=== PATIENT | female | born 1930 | race Caucasian/White ===

== ENCOUNTER 2016-10-14 17:07 | Emergency (ER) | payer MEDICARE, OTHER ==
[2016-10-14] MEDS ORDERED: SODIUM CHLORIDE 0.9% 1,000 ML IV STA (17:14)
[2016-10-14 17:36] LABS: Anisocytosis Slight; Basophils % (A) 0 %; CH 33.8; CHCM 33.7; Eosinophils # (A) 0.1 k/uL (0-0.7); Eosinophils % (A) 1 %; HCT 39.3 % (34.0-46.0); HDW 3.12; HGB 12.7 gm/dL (11.4-16.0); Luc # (Auto) 0.25; Luc % (Auto) 2; Lymphocytes % (A) 19 %; MCH 32.6 pg (25.0-35.0); MCHC 32.4 g/dL (31.0-37.0); MCV 100.5 fL (80.0-100.0); Macrocytosis Slight; Mean Platelet Volume 6.7; Monocytes # (A) 0.6 k/uL (0-1.0); Monocytes % (A) 5 %; Neutrophils # (A) 7.9 k/uL (1.3-7.7); Neutrophils % (A) 73 %; RBC 3.91 m/uL (3.80-5.40); RDW 16.7 % (11.5-15.5); WBC 10.9 k/uL (3.8-10.6); WBC (Perox) 10.91
[2016-10-14 17:41] LABS: INR 0.9 (<1.1); Partial Thromboplastin Time 22.7 sec (22.0-30.0); Prothrombin Time 9.6 sec (9.0-12.0)
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
[2016-10-14 17:50] VITALS: RESP 18
[2016-10-14 17:50] LABS: ALT 21 U/L (9-52); AST 19 U/L (14-36); Alkaline Phosphatase 95 U/L (38-126); Anion Gap 11 mmol/L; Blood Urea Nitrogen 28 mg/dL (7-17); Calcium 10.2 mg/dL (8.4-10.2); Carbon Dioxide 26 mmol/L (22-30); Chloride 104 mmol/L (98-107); Creatine Kinase 42 U/L (30-135); Glucose 101 mg/dL (74-99); Magnesium 1.9 mg/dL (1.6-2.3); Non-African American GFR(MDRD) 52 (>60 ml/min/1.73 sqM); Phosphorous 3.4 mg/dL (2.5-4.5); Potassium 4.2 mmol/L (3.5-5.1); Sodium 141 mmol/L (137-145); Total Protein 7.3 g/dL (6.3-8.2)
[2016-10-14 18:01] LABS: Creatine Kinase MB 0.9 ng/mL (0.0-2.4); Troponin I <0.012 ng/mL (0.000-0.034)
[2016-10-14 18:46] LABS: Appearance,Urine Clear (Clear); Bilirubin,Urine Negative (Negative); Glucose,Urine (UA) Negative (Negative); Ketones,Urine Negative (Negative); Leukocyte Esterase,Urine Trace (Negative); Mucus,Urine Rare /hpf; Nitrite,Urine Negative (Negative); Particle Count 1026; Protein,Urine Negative (Negative); RBC,Urine 2 /hpf (0-5); Specific Gravity,Urine 1.008 (1.001-1.035); Squamous Epithelial Cell,Urine <1 /hpf (0-4); UA Billing (MACRO vs. MICRO) MICRO; Urobilinogen,Urine <2.0 mg/dL (<2.0); WBC,Urine 2 /hpf (0-5)
[2016-10-14] MEDS ORDERED: LORazepam 2 MG/ML SYRINGE IV STA (19:01)
[2016-10-14 19:14] VITALS: PULSE 64
[2016-10-14 21:10] VITALS: BP 126/59; TEMP 97.8
== END 2016-10-14 21:00 | disposition home or self-care (01) ==
LOC: EC 17:07
DX: F41.9 Anxiety disorder, unspecified (principal); I25.10 Atherosclerotic heart disease of native coronary artery without angina pectoris; E78.5 Hyperlipidemia, unspecified; I10 Essential (primary) hypertension; Z87.891 Personal history of nicotine dependence; Z79.82 Long term (current) use of aspirin; Z79.899 Other long term (current) drug therapy; Z91.013 Allergy to seafood; Z91.018 Allergy to other foods
CPT/HCPCS: 36415; 93005; 80053; 82550; 82553; 83735; 84100; 84484; 85025; 85610; 85730; 81001; 87086; 99284; 96374; 96361; J2060

== ENCOUNTER → 2017-08-28 | Outpatient (CLI) | payer MEDICARE, OTHER ==
--- NOTE | 2017-08-28 11:50 | US ---
EXAMINATION TYPE: US abdomen complete DATE OF EXAM: 08/28/2017 COMPARISON: NONE CLINICAL HISTORY: N28.1 renal cyst. Patient states doctor visualized liver/renal cysts while doing an other type of testing. EXAM MEASUREMENTS: Liver Length: 13.7 cm Gallbladder Wall: 0.2 cm CBD: 0.6 cm Spleen: 8.3 cm Right Kidney: 10.0 x 5.0 x 5.1 cm Left Kidney: 9.1 x 4.7 x 4.0 cm Pancreas: Tail obscured by overlying bowel gas, visualized portions wnl Liver: Multiple cystic areas visualized, largest left lobe measuring 1.3 x 1.1 x 1.4 cm. Hepatic ech otexture is slightly heterogenous, limiting evaluation for underlying hepatic masses. Gallbladder: wnl Evidence for sonographic Morelos's sign: No CBD: wnl Spleen: wnl Right Kidney: Multiple cystic areas visualized, largest mid pole measuring 1.1 x 1.2 x 0.9 cm, possi ble parapelvic cyst Left Kidney: Cystic areas visualized mid pole measuring 1.0 x 0.7 x 0.8 cm, possible parapelvic cyst . Echogenic foci visualized measuring 0.4 cm Upper IVC: wnl Abd Aorta: Atherosclerotic changes visualized IMPRESSION: 1. Benign-appearing renal and hepatic cysts. 2. Slightly heterogenous hepatic echotexture, most commonly relating to underlying hepatic steatosis. 3. Single nonobstructing 4 mm left renal calculus.
== END | disposition home or self-care (01) ==
LOC: RADUSWWP 09:30
PROVIDERS: ATTEND Internal Medicine
DX: N20.0 Calculus of kidney (principal); R93.2 Abnormal findings on diagnostic imaging of liver and biliary tract
CPT/HCPCS: 76700

== ENCOUNTER 2018-08-09 10:05 | Observation (INO) | payer MEDICARE, OTHER ==
[2018-08-09] MEDS ORDERED: ASPIRIN 81 MG PO STA (10:30)
[2018-08-09] MEDS ORDERED: NITROGLYCERIN OINT 1 INCH/GM PACKET TOPICAL STA (10:30)
--- NOTE | 2018-08-09 10:32 | ED ---
General Adult HPI - General Chief complaint: Chest Pain Stated complaint: Chest Discomfort Time Seen by Provider: 08/09/18 10:13 Source: patient, EMS, RN notes reviewed Mode of arrival: EMS Limitations: no limitations - History of Present Illness Initial comments: Patient is a pleasant 87-year-old female presenting to the emergency department chest discomfort. Patient does have a difficult time describing her symptoms. Onset of symptoms was yesterday. Discomfort feels somewhat like indigestion. Discomfort was moderate however now has resolved. There was some minimal associated dyspnea. No nausea. Patient felt sweaty and her hands yesterday. Patient does have a history of previous cardiac problems and does have 1 stent. Patient is unclear symptoms are similar or not. - Related Data Home Medications Medication Instructions Recorded Confirmed Atorvastatin [Lipitor] 80 mg PO HS 12/30/13 08/09/18 Ezetimibe [Zetia] 10 mg PO HS 12/30/13 08/09/18 Atenolol [Tenormin] 25 mg PO DAILY 09/16/14 08/09/18 Losartan Potassium [Cozaar] 50 mg PO DAILY 06/06/15 08/09/18 Aspirin 81 mg PO HS 06/22/15 08/09/18 Multivit-Min/FA/Lycopen/Lutein 1 tab PO HS 06/22/15 08/09/18 [Centrum Silver Tablet] Calcium Carbonate/Vitamin D3 1 tab PO HS 10/14/16 08/09/18 [Calcium 600-Vit D3 400 Caplet] Omeprazole [PriLOSEC] 20 mg PO DAILY 10/14/16 08/09/18 traMADol HCl [Ultram] 50 mg PO BID 10/14/16 08/09/18 Allergies Allergy/AdvReac Type Severity Reaction Status Date / Time mushroom AdvReac GOUT FLARE Verified 08/09/18 10:41 UP shellfish derived [Shellfish] AdvReac GOUT FLARE Verified 08/09/18 10:41 UP Review of Systems ROS Statement: Those systems with pertinent positive or pertinent negative responses have been documented in the HPI. ROS Other: All systems not noted in ROS Statement are negative. Constitutional: Denies: fever Eyes: Denies: eye pain ENT: Denies: ear pain Respiratory: Denies: cough Cardiovascular: Reports: chest pain Endocrine: Denies: fatigue Gastrointestinal: Denies: abdominal pain Genitourinary: Denies: dysuria Musculoskeletal: Denies: back pain Skin: Denies: rash Neurological: Denies: weakness Past Medical History Past Medical History: Coronary Artery Disease (CAD), Chest Pain / Angina, Hyperlipidemia, Hypertension Additional Past Medical History / Comment(s): 09/2014 dobutamine stress test with mild EKG changes and normal echo, chronic low back pain, electrolyte abnormality-low magnesium, heart murmur, bilateral mild macular degeneration, scarlet fever as a child, several ear infections as a child, History of Any Multi-Drug Resistant Organisms: None Reported Past Surgical History: Heart Catheterization, Heart Catheterization With Stent, Joint Replacement, Orthopedic Surgery Additional Past Surgical History / Comment(s): 2007 or 2008 PTCA with stent to LAD, 09/25/14 ccath tx medically, back injections with Dr. Chandra with last one 3 weeks ago, recent bilateral cataract removal with lens implants, bilateral knee replacement, 02/21 2 molar extraction due to cavity under crown and recently root canal under a crown. Past Anesthesia/Blood Transfusion Reactions: No Reported Reaction Additional Past Anesthesia/Blood Transfusion Reaction / Comment(s): Pt has never recieved blood. Date of Last Stent Placement:: 2008 Past Psychological History: Anxiety Smoking Status: Former smoker Past Alcohol Use History: Occasional Past Drug Use History: None Reported - Past Family History Mother Family Medical History: Congestive Heart Failure (CHF), Dementia Additional Family Medical History / Comment(s): Mother at 89yrs old. Father Family Medical History: Hypertension, Myocardial Infarction ([place]) Additional Family Medical History / Comment(s): Father at age 82yrs. General Exam Limitations: no limitations General appearance: alert, in no apparent distress Head exam: Present: atraumatic Eye exam: Present: normal appearance, PERRL ENT exam: Present: normal oropharynx Neck exam: Present: normal inspection Respiratory exam: Present: normal lung sounds bilaterally. Absent: chest wall tenderness Cardiovascular Exam: Present: regular rate, normal rhythm Expanded Peripheral pulses: 2+: Radial (R), Radial (L), Dorsalis Pedis (R), Dorsalis Pedis (L) GI/Abdominal exam: Present: soft. Absent: tenderness Extremities exam: Present: normal inspection. Absent: pedal edema, calf tenderness Neurological exam: Present: alert Psychiatric exam: Present: normal affect, normal mood Skin exam: Present: normal color Course Vital Signs 08/09/18 08/09/18 08/09/18 10:06 10:30 11:00 Temperature 98 F Pulse Rate 62 56 L 56 L Respiratory 18 Rate Blood Pressure 111/61 133/68 153/66 O2 Sat by Pulse 98 99 98 Oximetry 08/09/18 08/09/18 11:30 12:00 Temperature Pulse Rate 57 L 59 L Respiratory Rate Blood Pressure O2 Sat by Pulse 96 99 Oximetry EKG Findings - EKG Comments: EKG Findings:: Sinus bradycardia at 57. For screening AV block AK of 240. QRS 80. QT 44. QTC 402. Normal axis. LVH. No acute ST change. Medical Decision Making - Medical Decision Making Patient reevaluated and resting comfortably in bed. Near symptom-free at this point. Patient updated on results and plan. Case was discussed in detail with Dr. presley, covering with sound physician for Dr. Mcguire, who will admit. - Lab Data Result diagrams: 08/09/18 10:22 08/09/18 10:58 Lab Results 08/09/18 08/09/18 08/09/18 Range/Units 10:22 10:22 10:58 WBC 8.0 (3.8-10.6) k/uL RBC 3.83 (3.80-5.40) m/uL Hgb 11.8 (11.4-16.0) gm/dL Hct 36.1 (34.0-46.0) % MCV 94.2 (80.0-100.0) fL MCH 30.7 (25.0-35.0) pg MCHC 32.6 (31.0-37.0) g/dL RDW 18.2 H (11.5-15.5) % Plt Count 231 (150-450) k/uL Neutrophils % 72 % Lymphocytes % 18 % Monocytes % 5 % Eosinophils % 1 % Basophils % 1 % Neutrophils # 5.8 (1.3-7.7) k/uL Lymphocytes # 1.5 (1.0-4.8) k/uL Monocytes # 0.4 (0-1.0) k/uL Eosinophils # 0.1 (0-0.7) k/uL Basophils # 0.0 (0-0.2) k/uL Hypochromasia Slight Anisocytosis Slight PT 9.6 (9.0-12.0) sec INR 0.9 (<1.2) APTT 18.2 L (22.0-30.0) sec Sodium 141 (137-145) mmol/L Potassium 4.7 (3.5-5.1) mmol/L Chloride 106 (98-107) mmol/L Carbon Dioxide 29 (22-30) mmol/L Anion Gap 6 mmol/L BUN 28 H (7-17) mg/dL Creatinine 1.10 H (0.52-1.04) mg/dL Est GFR (CKD-EPI)AfAm 53 (>60 ml/min/1.73 sqM) Est GFR (CKD-EPI)NonAf 46 (>60 ml/min/1.73 sqM) Glucose 103 H (74-99) mg/dL Calcium 10.9 H (8.4-10.2) mg/dL Magnesium 1.9 (1.6-2.3) mg/dL Total Bilirubin 1.2 (0.2-1.3) mg/dL AST 20 (14-36) U/L ALT 26 (9-52) U/L Alkaline Phosphatase 90 (38-126) U/L Total Creatine Kinase (30-135) U/L CK-MB (CK-2) (0.0-2.4) ng/mL CK-MB (CK-2) Rel Index Troponin I (0.000-0.034) ng/mL Total Protein 7.1 (6.3-8.2) g/dL Albumin 4.0 (3.5-5.0) g/dL 08/09/18 Range/Units 10:58 WBC (3.8-10.6) k/uL RBC (3.80-5.40) m/uL Hgb (11.4-16.0) gm/dL Hct (34.0-46.0) % MCV (80.0-100.0) fL MCH (25.0-35.0) pg MCHC (31.0-37.0) g/dL RDW (11.5-15.5) % Plt Count (150-450) k/uL Neutrophils % % Lymphocytes % % Monocytes % % Eosinophils % % Basophils % % Neutrophils # (1.3-7.7) k/uL Lymphocytes # (1.0-4.8) k/uL Monocytes # (0-1.0) k/uL Eosinophils # (0-0.7) k/uL Basophils # (0-0.2) k/uL Hypochromasia Anisocytosis PT (9.0-12.0) sec INR (<1.2) APTT (22.0-30.0) sec Sodium (137-145) mmol/L Potassium (3.5-5.1) mmol/L Chloride (98-107) mmol/L Carbon Dioxide (22-30) mmol/L Anion Gap mmol/L BUN (7-17) mg/dL Creatinine (0.52-1.04) mg/dL Est GFR (CKD-EPI)AfAm (>60 ml/min/1.73 sqM) Est GFR (CKD-EPI)NonAf (>60 ml/min/1.73 sqM) Glucose (74-99) mg/dL Calcium (8.4-10.2) mg/dL Magnesium (1.6-2.3) mg/dL Total Bilirubin (0.2-1.3) mg/dL AST (14-36) U/L ALT (9-52) U/L Alkaline Phosphatase (38-126) U/L Total Creatine Kinase 35 (30-135) U/L CK-MB (CK-2) 0.5 (0.0-2.4) ng/mL CK-MB (CK-2) Rel Index 1.4 Troponin I <0.012 (0.000-0.034) ng/mL Total Protein (6.3-8.2) g/dL Albumin (3.5-5.0) g/dL - Radiology Data Radiology results: image reviewed (Chest x-ray shows no acute process) Disposition Clinical Impression: Chest pain Disposition: ADMITTED IP TO THIS HOSP Is patient prescribed a controlled substance at d/c from ED?: No Referrals: Leo Barillas MD [Primary Care Provider] - 1-2 days Decision Time: 12:46
[2018-08-09 10:46] LABS: Anisocytosis Slight; Basophils % (A) 1 %; Eosinophils # (A) 0.1 k/uL (0-0.7); Eosinophils % (A) 1 %; HCT 36.1 % (34.0-46.0); HGB 11.8 gm/dL (11.4-16.0); Hypochromasia Slight; Lymphocytes # (A) 1.5 k/uL (1.0-4.8); Lymphocytes % (A) 18 %; MCH 30.7 pg (25.0-35.0); MCHC 32.6 g/dL (31.0-37.0); MCV 94.2 fL (80.0-100.0); Mean Platelet Volume 6.9; Monocytes # (A) 0.4 k/uL (0-1.0); Monocytes % (A) 5 %; Neutrophils # (A) 5.8 k/uL (1.3-7.7); Neutrophils % (A) 72 %; Platelet Count 231 k/uL (150-450); RBC 3.83 m/uL (3.80-5.40); RDW 18.2 % (11.5-15.5)
--- NOTE | 2018-08-09 11:10 | XR ---
EXAMINATION TYPE: XR chest 2V DATE OF EXAM: 08/09/2018 COMPARISON: Chest x-ray June 22, 2015. HISTORY: Chest pain and discomfort. TECHNIQUE: Frontal and lateral views of the chest are obtained. FINDINGS: There is chronic parenchymal change without suspicious focal air space opacity, pleural ef fusion, or pneumothorax seen. The cardiac silhouette size is upper limits of normal currently with a therosclerotic thoracic aorta. The osseous structures are demineralized. Multilevel spurring in tho racic spine is present. Degenerative change bilateral glenohumeral joints is seen. IMPRESSION: Chronic changes without acute process.
[2018-08-09 11:17] LABS: INR 0.9 (<1.2); Prothrombin Time 9.6 sec (9.0-12.0)
[2018-08-09 11:18] LABS: Partial Thromboplastin Time 18.2 sec (22.0-30.0)
[2018-08-09 11:27] LABS: Potassium 4.7 mmol/L (3.5-5.1)
[2018-08-09 11:28] LABS: Calcium 10.9 mg/dL (8.4-10.2); Magnesium 1.9 mg/dL (1.6-2.3); Total Bilirubin 1.2 mg/dL (0.2-1.3); Total Protein 7.1 g/dL (6.3-8.2)
[2018-08-09 11:33] LABS: Creatine Kinase 35 U/L (30-135)
[2018-08-09 11:45] LABS: Creatine Kinase MB 0.5 ng/mL (0.0-2.4); Troponin I <0.012 ng/mL (0.000-0.034)
[2018-08-09] MEDS ORDERED: NITROGLYCERIN SL TABS 0.4 MG TAB SUBLINGUAL PRN (12:47)
[2018-08-09] MEDS ORDERED: MAG HYDROX/AL HYDROX/SIMETH 30 ML CUP PO PRN (13:40)
[2018-08-09] MEDS ORDERED: ACETAMINOPHEN TAB 325 MG TAB PO PRN (13:40)
[2018-08-09] MEDS ORDERED: NALOXONE 0.4 MG/ML 1 ML VIAL IV PRN (13:40)
--- NOTE | 2018-08-09 13:52 | P.HPIM ---
History of Present Illness H&P Date: 08/09/18 Chief Complaint: Chest discomfort 87-year-old female with PMH of CAD status post stent, hypertension, hyperlipidemia presents to the ED for chest pain. Patient reports feelings of heartburn that started yesterday, woke her up. The pain is intermittent, occurring about 20 times daily, lasting for about 5 minutes before resolves on its own. The pain had been persistent since yesterday, prompting patient to come to the ED. Patient describes the pain as a discomfort across her chest. Pain is 6 out of 10 in severity. Pain is nonradiating. There are no alleviating or aggravating factors. Pain is not aggravated with meals or movement or deep inspiration. Patient denies any headache, nausea, vomiting, fever, cough, breath, palpitations, changes in urination or bowel habits. Patient does report a decreased appetite for the past 1 day. Of note, she sees Dr. Segundo electromechanical engineer in the outpatient setting. Patient also complains of chronic bilateral shoulder pain, attribute it to severe arthritis. In the ED, CBC and coagulation panel was unremarkable. CMP showed a BUNs of 28 , creatinine 1.10. Initial troponin was less than 0.012, EKG showing sinus bradycardia with first-degree AV block. Chest x-ray was negative. Patient is admitted for chest pain, rule out acute coronary syndrome, cardiology on consult. Review of Systems All systems: negative Past Medical History Past Medical History: Coronary Artery Disease (CAD), Chest Pain / Angina, Hyperlipidemia, Hypertension Additional Past Medical History / Comment(s): 09/2014 dobutamine stress test with mild EKG changes and normal echo, chronic low back pain, electrolyte abnormality-low magnesium, heart murmur, bilateral mild macular degeneration, scarlet fever as a child, several ear infections as a child, History of Any Multi-Drug Resistant Organisms: None Reported Past Surgical History: Heart Catheterization, Heart Catheterization With Stent, Joint Replacement, Orthopedic Surgery Additional Past Surgical History / Comment(s): 2007 or 2008 PTCA with stent to LAD, 09/25/14 [facility] tx medically, back injections with Dr. Chandra with last one 3 weeks ago, recent bilateral cataract removal with lens implants, bilateral knee replacement, 02/21 2 molar extraction due to cavity under crown and recently root canal under a crown. Past Anesthesia/Blood Transfusion Reactions: No Reported Reaction Additional Past Anesthesia/Blood Transfusion Reaction / Comment(s): Pt has never recieved blood. Date of Last Stent Placement:: 2008 Past Psychological History: Anxiety Smoking Status: Former smoker Past Alcohol Use History: Occasional Past Drug Use History: None Reported - Past Family History Mother Family Medical History: Congestive Heart Failure (CHF), Dementia Additional Family Medical History / Comment(s): Mother at 89yrs old. Father Family Medical History: Hypertension, Myocardial Infarction ([place]) Additional Family Medical History / Comment(s): Father at age 82yrs. Medications and Allergies Home Medications Medication Instructions Recorded Confirmed Type Atorvastatin [Lipitor] 80 mg PO HS 12/30/13 08/09/18 History Ezetimibe [Zetia] 10 mg PO HS 12/30/13 08/09/18 History Atenolol [Tenormin] 25 mg PO DAILY 09/16/14 08/09/18 History Losartan Potassium [Cozaar] 50 mg PO DAILY 06/06/15 08/09/18 History Aspirin 81 mg PO HS 06/22/15 08/09/18 History Multivit-Min/FA/Lycopen/Lutein 1 tab PO HS 06/22/15 08/09/18 History [Centrum Silver Tablet] Calcium Carbonate/Vitamin D3 1 tab PO HS 10/14/16 08/09/18 History [Calcium 600-Vit D3 400 Caplet] Omeprazole [PriLOSEC] 20 mg PO DAILY 10/14/16 08/09/18 History traMADol HCl [Ultram] 50 mg PO BID 10/14/16 08/09/18 History Allergies Allergy/AdvReac Type Severity Reaction Status Date / Time mushroom AdvReac GOUT FLARE Verified 08/09/18 10:41 UP shellfish derived [Shellfish] AdvReac GOUT FLARE Verified 08/09/18 10:41 UP Physical Exam Vitals: Vital Signs Temp Pulse Resp BP Pulse Ox 08/09/18 13:00 60 122/63 96 08/09/18 12:30 59 L 128/70 97 08/09/18 12:00 59 L 99 08/09/18 11:30 57 L 96 08/09/18 11:00 56 L 153/66 98 08/09/18 10:30 56 L 133/68 99 08/09/18 10:06 98 F 62 18 111/61 98 Intake and Output 08/08/18 08/09/18 08/09/18 22:59 06:59 14:59 Other: Weight 90.718 kg General: [non toxic], [no distress], [appears at stated age] Derm: [warm], [dry] Head: [atraumatic], [normocephalic], [symmetric] Eyes: [EOMI], [no lid lag], [anicteric sclera] Mouth: [no lip lesion], [mucus membranes moist] Cardiovascular: [S1S2 reg], [no murmur], [positive DP pulse bilateral] Lungs: [CTA bilateral], [no rhonchi, no rales] , [no accessory muscle use] Abdominal: [soft], [ nontender to palpation], [no guarding], [no appreciable organomegaly] Ext: [no gross muscle atrophy], [1+ lower extremity edema], [no contractures] Neuro: [ CN II-XI grossly intact], [no focal neuro deficits] Psych: [Alert], [oriented], [appropriate affect] Results CBC & Chem 7: 08/09/18 10:22 08/09/18 10:58 Labs: Abnormal Lab Results - Last 24 Hours (Table) 08/09/18 08/09/18 08/09/18 Range/Units 10:22 10:22 10:58 RDW 18.2 H (11.5-15.5) % APTT 18.2 L (22.0-30.0) sec BUN 28 H (7-17) mg/dL Creatinine 1.10 H (0.52-1.04) mg/dL Glucose 103 H (74-99) mg/dL Calcium 10.9 H (8.4-10.2) mg/dL Thrombosis Risk Factor Assmnt - Choose All That Apply Any of the Below Risk Factors Present?: Yes Each Factor Represents 1 point: Obesity (BMI >25) Other Risk Factors: No Each Risk Factor Represents 3 Points: Age 75 years or older Thrombosis Risk Factor Assessment Total Risk Factor Score: 4 Thrombosis Risk Factor Assessment Level: Moderate Risk Assessment and Plan Assessment: Assessment and Plan 1. Chest pain 2. History of CAD status post stent 3. Acute kidney injury 4. GERD 5. DVT and GI prophylaxis 1. Appears like heartburn, low suspicion for ACS but with risk factors. Initial troponin less than 0.012, EKG showing sinus bradycardia with first degree AV block. Chest x-ray is negative. Plans to trend 2 troponin and EKG to rule out ACS. Will follow echocardiogram and lipid panel results. Follow cardiology consult. Telemetry monitoring. Pain management with Nitrostat, Tylenol or Alpha. 2. Continue aspirin and statin. Continue beta yolanda. Follow cardiology recommendations. 3. BUN 28, creatinine 1.10. Likely prerenal due to ROGER inhibitor use. Hold losartan. Encourage by mouth hydration. Daily BMP. 4. Maalox as needed for heartburn. Continue Protonix 40 mg by mouth daily. 5. SCD boots only. Protonix by mouth. Patient admitted for chest pain, rule out acute coronary syndrome, cardiology consult. Patient reports that she would like to name her son indicates that she can't make decisions for herself. Patient also states that she would not like chest compressions in the case that her heart was to stop. Patient is agreeable for intubation. Likely discharge tomorrow
--- NOTE | 2018-08-09 16:58 | ECHOF ---
Referral Reason:Chest pain MEASUREMENTS -------- HEIGHT: 154.9 cm WEIGHT: 90.7 kg BP: IVSd: 1.0 cm (0.6 - 1.1) LVIDd: 3.5 cm (3.9 - 5.3) LVPWd: 1.2 cm (0.6 - 1.1) IVSs: 1.2 cm LVIDs: 1.3 cm LVPWs: 2.0 cm Ao Diam: 3.6 cm (2.0 - 3.7) AV Cusp: 1.6 cm (1.5 - 2.6) LA Diam: 4.0 cm (2.7 - 3.8) MV EXCURSION: 12.524 mm (> 18.000) MV EF SLOPE: 71 mm/s (70 - 150) EPSS: 1.1 cm MV E Jesu: 0.76 m/s MV DecT: 204 ms MV A Jesu: 0.86 m/s MV E/A Ratio: 0.89 AV maxP.13 mmHg AV meanP.69 mmHg RAP: 5.00 mmHg RVSP: 26.68 mmHg FINDINGS -------- Sinus rhythm. This was a technically good study. The left ventricular size is normal. There is mild concentric left ventricular hypertrophy. Overa ll left ventricular systolic function is normal with, an EF between 55 - 60 %. The right ventricle is normal in size. The left atrium is mildly dilated. The right atrium is normal in size. Aortic valve is trileaflet and is mildly thickened. There is mild aortic valve sclerosis. Peak/me an gradient across the Aortic Valve is 22.13mmHg / 11.69mmHg. Mild mitral regurgitation is present. Trace tricuspid regurgitation present. The right ventricular systolic pressure, as measured by Dopp ler, is 26.68mmHg. Pulmonic valve appears structurally normal. The aortic root size is normal. IVC Not well visulized. The pericardium is normal. CONCLUSIONS -------- 1. Sinus rhythm. 2. This was a technically good study. 3. The left ventricular size is normal. 4. There is mild concentric left ventricular hypertrophy. 5. Overall left ventricular systolic function is normal with, an EF between 55 - 60 %. 6. The right ventricle is normal in size. 7. The left atrium is mildly dilated. 8. The right atrium is normal in size. 9. Aortic valve is trileaflet and is mildly thickened. 10. There is mild aortic valve sclerosis. 11. Peak/mean gradient across the Aortic Valve is 22.13mmHg / 11.69mmHg. 12. Mild mitral regurgitation is present. 13. Trace tricuspid regurgitation present. 14. The right ventricular systolic pressure, as measured by Doppler, is 26.68mmHg. 15. Pulmonic valve appears structurally normal. 16. The aortic root size is normal. 17. IVC Not well visulized. 18. The pericardium is normal. FLATWORK FINISHER HAND: Jade Diaz RDCS
[2018-08-09 17:24] VITALS: BMI 37.8
[2018-08-09] MEDS: NITROGLYCERIN OINT 1 INCH/GM PACKET TOPICAL SCH (19:21)
[2018-08-09] MEDS: HYDROcodone/APAP 5-325MG 1 EACH TAB PO PRN (20:00)
[2018-08-09] MEDS ORDERED: ASPIRIN 81 MG PO SCH (21:00)
[2018-08-09] MEDS ORDERED: EZETIMIBE 10 MG TAB PO SCH (21:00)
[2018-08-09] MEDS ORDERED: ATORVASTATIN 80 MG TAB PO SCH (21:00)
[2018-08-10] MEDS: NITROGLYCERIN OINT 1 INCH/GM PACKET TOPICAL SCH ×2 (01:51→06:22)
[2018-08-10] MEDS: HYDROcodone/APAP 5-325MG 1 EACH TAB PO PRN (03:25)
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
[2018-08-10] MEDS ORDERED: PANTOPRAZOLE 40 MG TABLET PO SCH (07:30)
[2018-08-10 07:53] LABS: Calcium 10.1 mg/dL (8.4-10.2); Potassium 4.7 mmol/L (3.5-5.1)
[2018-08-10 08:02] VITALS: BP 130/69; PULSE 57; RESP 16; TEMP 97.6
[2018-08-10] MEDS ORDERED: LOSARTAN 50 MG TAB PO SCH (09:00)
[2018-08-10] MEDS ORDERED: ATENOLOL 25 MG TAB PO SCH (09:00)
[2018-08-10] MEDS ORDERED: ASPIRIN 325 MG TAB PO SCH (09:00)
--- NOTE | 2018-08-10 09:32 | P.DS ---
Providers Date of admission: 08/09/18 12:47 Expected date of discharge: 08/10/18 Attending physician: Joselito Mendez MD Consults: 08/09/18 12:47 Consult Physician Urgent Consulting Provider: Jeanette Vasquez Consult Reason/Comments: cp Do you want consulting provider notified?: Yes Primary care physician: [facility] Course: 87-year-old female with PMH of CAD status post stent, hypertension, hyperlipidemia presents to the ED for chest pain. Patient reports feelings of heartburn that started yesterday, woke her up. The pain is intermittent, occurring about 20 times daily, lasting for about 5 minutes before resolves on its own. The pain had been persistent since yesterday, prompting patient to come to the ED. Patient describes the pain as a discomfort across her chest. Pain is 6 out of 10 in severity. Pain is nonradiating. There are no alleviating or aggravating factors. Pain is not aggravated with meals or movement or deep inspiration. Patient denies any headache, nausea, vomiting, fever, cough, breath, palpitations, changes in urination or bowel habits. Patient does report a decreased appetite for the past 1 day. Of note, she sees Dr. Segundo pediatric pathologist in the outpatient setting. Patient also complains of chronic bilateral shoulder pain, attribute it to severe arthritis. In the ED, CBC and coagulation panel was unremarkable. CMP showed a BUNs of 28 , creatinine 1.10. Initial troponin was less than 0.012, EKG showing sinus bradycardia with first-degree AV block. Chest x-ray was negative. Patient is admitted for chest pain, rule out acute coronary syndrome, cardiology on consult. Troponin was less than 0.0123 with EKG showing sinus bradycardia with first- degree AV block. Patient was evaluated by cardiology and cleared for discharge with close follow-up with her primary pediatric pathologist Dr. Segundo. Patient was seen and examined prior to discharge. No acute events overnight. Patient reports complete resolution of her chest pain after taking Maalox last night. She denies any chest pain, shortness of breath or palpitations. Looking for to going home. General: [non toxic], [no distress], [appears at stated age] Derm: [warm], [dry] Head: [atraumatic], [normocephalic], [symmetric] Eyes: [EOMI], [no lid lag], [anicteric sclera] Mouth: [no lip lesion], [mucus membranes moist] Cardiovascular: [S1S2 reg], [no murmur], [positive DP pulse bilateral] Lungs: [CTA bilateral], [no rhonchi, no rales] , [no accessory muscle use] Abdominal: [soft], [ nontender to palpation], [no guarding], [no appreciable organomegaly] Ext: [no gross muscle atrophy], [1+ lower extremity edema], [no contractures] Neuro: [ CN II-XI grossly intact], [no focal neuro deficits] Psych: [Alert], [oriented], [appropriate affect] Assessment and Plan 1. Chest pain 2. History of CAD status post stent 3. Acute kidney injury 4. GERD 5. DVT and GI prophylaxis 1. Appears like heartburn, low suspicion for ACS but with risk factors. Troponin less than 0.012 x 3, EKG showing sinus bradycardia with first degree AV block, ACS ruled out. Chest x-ray is negative. Echocardiogram shows EF of 55-60% with mild LVH, lipid panel is within normal limits except for an elevated HDL at 75. Cardiology consulted, cleared for discharge. Telemetry monitoring. Pain management with Nitrostat, Tylenol or [place]. 2. Continue aspirin and statin. Continue beta yolanda. Follow cardiology recommendations. 3. BUN 28-30, creatinine 1.10-within normal limits. Likely prerenal due to ROGER inhibitor use. Hold losartan. Encourage by mouth hydration. Daily BMP. 4. Maalox as needed for heartburn. Continue Protonix 40 mg by mouth daily. 5. SCD boots only. Protonix by mouth. Patient admitted for chest pain. ACS ruled out. Cleared by cardiology. DC today. Pertinent Studies: Chest x-ray, echocardiogram Patient Condition at Discharge: Stable Plan - Discharge Summary Discharge Rx Participant: No New Discharge Prescriptions: New Mag Hydrox/Al Hydrox/Simeth [Maalox] 15 ml PO Q6HR PRN #1 bottle PRN Reason: Indigestion Continue Ezetimibe [Zetia] 10 mg PO HS Atorvastatin [Lipitor] 80 mg PO HS Atenolol [Tenormin] 25 mg PO DAILY Losartan Potassium [Cozaar] 50 mg PO DAILY Multivit-Min/FA/Lycopen/Lutein [Centrum Silver Tablet] 1 tab PO HS Aspirin 81 mg PO HS traMADol HCl [Ultram] 50 mg PO BID Omeprazole [PriLOSEC] 20 mg PO DAILY Calcium Carbonate/Vitamin D3 [Calcium 600-Vit D3 400 Caplet] 1 tab PO HS Discharge Medication List Atorvastatin [Lipitor] 80 mg PO HS 12/30/13 [History] Ezetimibe [Zetia] 10 mg PO HS 12/30/13 [History] Atenolol [Tenormin] 25 mg PO DAILY 09/16/14 [History] Losartan Potassium [Cozaar] 50 mg PO DAILY 06/06/15 [History] Aspirin 81 mg PO HS 06/22/15 [History] Multivit-Min/FA/Lycopen/Lutein [Centrum Silver Tablet] 1 tab PO HS 06/22/15 [ History] Calcium Carbonate/Vitamin D3 [Calcium 600-Vit D3 400 Caplet] 1 tab PO HS [History] Omeprazole [PriLOSEC] 20 mg PO DAILY 10/14/16 [History] traMADol HCl [Ultram] 50 mg PO BID 10/14/16 [History] Mag Hydrox/Al Hydrox/Simeth [Maalox] 15 ml PO Q6HR PRN #1 bottle 08/10/18 [Rx] Follow up Appointment(s)/Referral(s): Leo Barillas MD [Primary Care Provider] - 1-2 days Clement Segundo MD [STAFF PHYSICIAN] - 1 Week Activity/Diet/Wound Care/Special Instructions: Diet: Heart healthy Please follow-up with your primary care provider within 1-2 days of discharge. Please follow-up with your pediatric pathologist Dr. Segundo within 1 week of discharge. Please take all medications as advised. Discharge Disposition: HOME SELF-CARE
== END 2018-08-10 10:36 | disposition home or self-care (01) ==
LOC: EC 10:05 → 1SOBS 12:47
PROVIDERS: ADMIT Family Medicine; ATTEND Family Medicine
DX: R07.89 Other chest pain (principal); N17.9 Acute kidney failure, unspecified; K21.9 Gastro-esophageal reflux disease without esophagitis; R61 Generalized hyperhidrosis; I25.10 Atherosclerotic heart disease of native coronary artery without angina pectoris; I10 Essential (primary) hypertension; E78.5 Hyperlipidemia, unspecified; I44.0 Atrioventricular block, first degree; R00.1 Bradycardia, unspecified; H35.30 Unspecified macular degeneration; F41.9 Anxiety disorder, unspecified; M19.90 Unspecified osteoarthritis, unspecified site; G89.29 Other chronic pain; M54.5 Low back pain; M25.511 Pain in right shoulder; M25.512 Pain in left shoulder; R77.8 Other specified abnormalities of plasma proteins; E66.9 Obesity, unspecified; Z68.37 Body mass index [BMI] 37.0-37.9, adult; Z79.82 Long term (current) use of aspirin; Z79.899 Other long term (current) drug therapy; Z91.013 Allergy to seafood; Z91.018 Allergy to other foods; Z95.5 Presence of coronary angioplasty implant and graft; Z98.42 Cataract extraction status, left eye; Z98.41 Cataract extraction status, right eye; Z96.1 Presence of intraocular lens; Z96.653 Presence of artificial knee joint, bilateral; Z86.19 Personal history of other infectious and parasitic diseases; Z87.891 Personal history of nicotine dependence; Z82.49 Family history of ischemic heart disease and other diseases of the circulatory system; Z81.8 Family history of other mental and behavioral disorders
CPT/HCPCS: 99285; 36415; 93005; 93306; 80061; 80053; 80048; 82550; 82553; 83735; 84484; 85025; 85610; 85730; 71046; G0378 ×2

== ENCOUNTER → 2018-10-21 | Outpatient (CLI) | payer MEDICARE, OTHER ==
--- NOTE | 2018-10-21 16:14 | MR ---
EXAMINATION TYPE: MR lumbar spine wo con DATE OF EXAM: 10/21/2018 COMPARISON: None HISTORY: 88-year-old female Low back pain TECHNIQUE: Multiplanar, multisequence images of the lumbar spine were acquired. FINDINGS: Large body habitus causes some generalized noise artifact. Vertebral body heights are preserved. There is grade 2 anterolisthesis at L4-L5 secondary to hypertrophic facet arthropathy. Grade 1 retrolisthesis at L2-L3. Advanced degenerative disc disease at L4-L5 with loss of disc height, vacuum, bulging disc, and assoc iated Modic type II endplate change. Moderate to advanced degenerative disc disease at L2-L3 with bulging disc and loss of disc height. Ligamentum flavum thickening mid to lower lumbar spine with hypertrophic facet arthropathy. Mild heterogeneous marrow signal without suspicious focal marrow replacement. Conus medullaris is normal. At T12-L1, no spinal canal or foraminal stenosis. At L1-L2, mild posterior disc bulge impressing on the ventral thecal sac without significant spinal c anal or foraminal stenosis. At L2-L3, there is hypertrophic facet arthropathy with grade 1 retrolisthesis, ligamentum flavum thic kening, diffuse disc bulge. Changes result in moderate spinal canal stenosis with severe right and mi [id number] left neuroforaminal stenosis. At L3-L4, ligamentum flavum thickening and facet degenerative change contribute to [id number] r ight and mild left neural foraminal stenosis. No spinal canal stenosis. At L4-L5, there is grade 2 anterolisthesis with ligamentum flavum thickening and advanced facet arthr opathy. Changes result in moderate left greater than right neuroforaminal stenosis and moderate spina l canal stenosis. At L5-S1, hypertrophic facet arthropathy and bulging disc. No significant canal or foraminal stenosis . IMPRESSION: 1. Hypertrophic facet arthropathy and ligamentum flavum thickening throughout. Changes result in grad e 2 anterolisthesis at L4-L5 and grade 1 retrolisthesis at L2-L3. 2. Multilevel degenerative disc disease, severe at L4-L5 and then at L2-L3. 3. Changes result in a moderate spinal canal stenosis at L2-L3 as well as L4-L5. 4. Severe right and [id number] left neuroforaminal stenosis at L2-L3. Moderate left greater melissa n right neuroforaminal stenoses at L4-L5.
== END | disposition home or self-care (01) ==
LOC: RADMRIMAIN 13:36
PROVIDERS: ATTEND Physical Medicine & Rehabilitation
DX: M48.061 Spinal stenosis, lumbar region without neurogenic claudication (principal); M51.16 Intervertebral disc disorders with radiculopathy, lumbar region; M43.16 Spondylolisthesis, lumbar region; M24.28 Disorder of ligament, vertebrae; M46.96 Unspecified inflammatory spondylopathy, lumbar region; E78.5 Hyperlipidemia, unspecified; I10 Essential (primary) hypertension; K21.9 Gastro-esophageal reflux disease without esophagitis; Z96.653 Presence of artificial knee joint, bilateral; Z95.5 Presence of coronary angioplasty implant and graft
CPT/HCPCS: 72148

== ENCOUNTER 2019-02-21 23:17 | Observation (INO) | payer MEDICARE, OTHER ==
[2019-02-21] MEDS ORDERED: SODIUM CHLORIDE 0.9% 1,000 ML IV STA (23:31)
[2019-02-21 23:54] LABS: Anisocytosis Slight; Basophils # (A) 0.1 k/uL (0-0.2); Basophils % (A) 1 %; Eosinophils # (A) 0.1 k/uL (0-0.7); Eosinophils % (A) 1 %; HCT 33.7 % (34.0-46.0); Hypochromasia Slight; Lymphocytes # (A) 1.8 k/uL (1.0-4.8); Lymphocytes % (A) 19 %; MCH 29.6 pg (25.0-35.0); MCHC 32.8 g/dL (31.0-37.0); MCV 90.5 fL (80.0-100.0); Monocytes # (A) 0.5 k/uL (0-1.0); Monocytes % (A) 5 %; Neutrophils # (A) 6.8 k/uL (1.3-7.7); Neutrophils % (A) 71 %; Platelet Count 198 k/uL (150-450); Poikilocytosis Slight; RBC 3.72 m/uL (3.80-5.40); RDW 19.3 % (11.5-15.5); WBC 9.5 k/uL (3.8-10.6)
[2019-02-22 00:04] LABS: Calcium 10.4 mg/dL (8.4-10.2); Magnesium 1.9 mg/dL (1.6-2.3); Potassium 4.2 mmol/L (3.5-5.1); Total Bilirubin 1.1 mg/dL (0.2-1.3); Total Protein 7.1 g/dL (6.3-8.2)
--- NOTE | 2019-02-22 00:11 | XR ---
EXAM: XR Chest, 2 Views CLINICAL HISTORY: ITS.REASON XR Reason: Chest Pain TECHNIQUE: Frontal and lateral views of the chest. COMPARISON: 08/09/2018 FINDINGS: Lungs: No consolidation or mass. Pleural space: No effusion. Heart: cardiomegaly. Mediastinum: Unremarkable. Bones/joints: No acute findings. IMPRESSION: No acute cardiopulmonary process. Cardiomegaly.
[2019-02-22 00:38] LABS: INR 0.9 (<1.2); Partial Thromboplastin Time 23.1 sec (22.0-30.0); Prothrombin Time 9.5 sec (9.0-12.0)
[2019-02-22] MEDS ORDERED: NITROGLYCERIN SL TABS 0.4 MG TAB SUBLINGUAL PRN (01:55)
--- NOTE | 2019-02-22 01:55 | ED ---
Chest Pain HPI - General Chief Complaint: Chest Pain Stated Complaint: chest pain Time Seen by Provider: 02/21/19 23:31 Source: patient, EMS Mode of arrival: EMS Limitations: no limitations - History of Present Illness Initial Comments: Patient is a pleasant 88-year-old female with a history of coronary artery disease who presents to the emergency department today for evaluation of chest pressure. Patient reports she has not felt well throughout the day, she woke this morning and had breakfast of juice and coffee. She states that she went about her normal activities did not have much appetite today, this evening she had a piece of toast and a Coke with did not have appetite for any other food. She is that this evening she was resting when she began to feel pressure in her chest, she was concerned this may be related to cardiac disease and contacted EMS. EMS found the patient had bradycardia with first-degree AV block but no acute findings on EKG. She was given aspirin and transferred to the hospital for further evaluation. Patient denies any diaphoresis lightheadedness or palpitations. Patient does have a history of bradycardia in the past. - Related Data Home Medications Medication Instructions Recorded Confirmed Atorvastatin [Lipitor] 80 mg PO HS 12/30/13 02/21/19 Ezetimibe [Zetia] 10 mg PO HS 12/30/13 02/21/19 Atenolol [Tenormin] 25 mg PO DAILY 09/16/14 02/21/19 Losartan Potassium [Cozaar] 50 mg PO DAILY 06/06/15 02/21/19 Aspirin 81 mg PO HS 06/22/15 02/21/19 Multivit-Min/FA/Lycopen/Lutein 1 tab PO DAILY 06/22/15 02/22/19 [Centrum Silver Tablet] Calcium Carbonate/Vitamin D3 1 tab PO DAILY 10/14/16 02/22/19 [Calcium 600-Vit D3 400 Caplet] Omeprazole [PriLOSEC] 20 mg PO DAILY 10/14/16 02/21/19 traMADol HCl [Ultram] 50 mg PO BID 10/14/16 02/21/19 Colchicine [Colcrys] 0.6 mg PO DAILY PRN 02/21/19 02/21/19 Allergies Allergy/AdvReac Type Severity Reaction Status Date / Time mushroom AdvReac GOUT FLARE Verified 02/22/19 02:42 UP shellfish derived [Shellfish] AdvReac GOUT FLARE Verified 02/22/19 02:42 UP Review of Systems ROS Statement: Those systems with pertinent positive or pertinent negative responses have been documented in the HPI. ROS Other: All systems not noted in ROS Statement are negative. EKG Findings - EKG Comments: EKG Findings:: EKG was obtained due to complaint of chest pain, EKG was obtained at 2330, rate is 58 rhythm is sinus bradycardia with first-degree block, there is normal axis with left ventricular hypertrophy, OK is prolonged at 2:30, cu rious 80, QTC 418 there is no acute ST elevations or depressions or evidence of acute ischemia or infarction. Past Medical History Past Medical History: Coronary Artery Disease (CAD), Chest Pain / Angina, Hyperlipidemia, Hypertension Additional Past Medical History / Comment(s): 09/2014 dobutamine stress test with mild EKG changes and normal echo, chronic low back pain, electrolyte abnormality-low magnesium, heart murmur, bilateral mild macular degeneration, scarlet fever as a child, several ear infections as a child, History of Any Multi-Drug Resistant Organisms: None Reported Past Surgical History: Heart Catheterization, Heart Catheterization With Stent, Joint Replacement, Orthopedic Surgery Additional Past Surgical History / Comment(s): 2007 or 2008 PTCA with stent to LAD, 09/25/14 [facility] tx medically, back injections with Dr. Chandra with last o ne 3 weeks ago, recent bilateral cataract removal with lens implants, bilateral knee replacement, 02/21 2 molar extraction due to cavity under crown and recently root canal under a crown. carpal tunnel surgery, sebacious cyst removed from back 2019 Past Anesthesia/Blood Transfusion Reactions: No Reported Reaction Additional Past Anesthesia/Blood Transfusion Reaction / Comment(s): Pt has never recieved blood. Date of Last Stent Placement:: 2008 Past Psychological History: Anxiety Smoking Status: Former smoker Past Alcohol Use History: Occasional Past Drug Use History: None Reported - Past Family History Mother Family Medical History: Congestive Heart Failure (CHF), Dementia Additional Family Medical History / Comment(s): Mother at 89yrs old. Father Family Medical History: Hypertension, Myocardial Infarction ([place]) Additional Family Medical History / Comment(s): Father at age 82yrs. General Exam - General Exam Comments Initial Comments: Physical Exam GENERAL: Patient is well-developed and well-nourished. Patient is nontoxic and well- hydrated and is in no distress. HENT: Normocephalic, Atraumatic. EYES: PERRL, EOMI PULMONARY: Unlabored respirations. No audible rales rhonchi or wheezing was noted. CARDIOVASCULAR: There is a regular rate and rhythm without any murmurs gallops or rubs. Warm and well perfused extremities ABDOMEN: Soft and nontender with normal bowel sounds. SKIN: Skin is clear with no lesions or rashes and otherwise unremarkable. : Deferred NEUROLOGIC: Patient is alert and oriented x3. Moving all extremities spontaneously MUSCULOSKELETAL: Normal extremities with adequate strength and full range of motion. No lower extremity swelling or edema. No calf tenderness. PSYCHIATRIC: Normal psychiatric evaluation. Limitations: no limitations Course Vital Signs 02/21/19 02/22/19 02/22/19 23:20 00:00 01:00 Temperature 98.8 F Pulse Rate 57 L 59 L Respiratory 18 18 Rate Blood Pressure 150/62 124/48 133/52 O2 Sat by Pulse 100 98 Oximetry 02/22/19 01:52 Temperature Pulse Rate 60 Respiratory 18 Rate Blood Pressure 143/56 O2 Sat by Pulse 99 Oximetry Chest Pain [facility] Patient was seen and evaluated, history is obtained from patient and EMS 88-year-old female known coronary artery disease presenting with pressure-like chest pain began without provocation. Patient has had aspirin prior to arrival upon arrival to the emergency department she is asymptomatic. Nitro will be held. Labs and imaging ordered. Labs reveal some mild elevated BUN consistent with dehydration no other significant abnormalities. When the patient's advanced age and medical history do feel she wore from further observation in the hospital, repeat troponins and evaluation by cardiology. Patient is agreeable. Patient primary care physician Dr. Barillas admits to [facility]. Patient care was discussed with Dr. Pastor who accepts admission. Disposition Clinical Impression: Chest pain Disposition: ADMITTED IP TO THIS HOSP Condition: Stable Is patient prescribed a controlled substance at d/c from ED?: No
--- NOTE | 2019-02-22 04:03 | P.HPIM ---
History of Present Illness H&P Date: 02/22/19 The patient is an 88 yo F with a PMH of CAD (s/p 1 stent in 2008), HTN, and HLD present to the ED w/ complaints of epigastric discomfort. The patient notes that she suddenly developed a vague pressure/burning like discomfort of the epigastric region, constant, with 1 episode of associated nausea and vomiting earlier today. She describes the pain as a band-like sensation across the chest, 4/10, non-exertional, non-radiating, non-pleuritic, w/ no alleviating or exacerbating features. The patient notes that she previously had similar vague discomfort when she had her stent placed. The patient denied cough, fever, chills, diarrhea, palpitations, SOB, dizziness, or diaphoresis. The patient notes that she has been following w/ Dr Segundo for her CAD. The patient underwent an extensive evaluation in the ED w/ WBC count 9.5, Hgb 11, platelets 198, Na 138, K 4.2, BUN 28, Cr 0.9, Troponin < 0.012, and BNP 140. EKG revealed sinus bradycardia @ 58 bpm w/ 1st degree AV block along with LVH. CXR revealed cardiomegaly but otherwise unremarkable. She is being admitted to the medicine service to r/o ACS. Review of Systems Pertinent positives and negatives as discussed in HPI, a complete review of systems was performed and all other systems are negative. Past Medical History Past Medical History: Coronary Artery Disease (CAD), Chest Pain / Angina, Hyperlipidemia, Hypertension Additional Past Medical History / Comment(s): 09/2014 dobutamine stress test with mild EKG changes and normal echo, chronic low back pain, electrolyte abnormality-low magnesium, heart murmur, bilateral mild macular degeneration, scarlet fever as a child, several ear infections as a child, History of Any Multi-Drug Resistant Organisms: None Reported Past Surgical History: Heart Catheterization, Heart Catheterization With Stent, Joint Replacement, Orthopedic Surgery Additional Past Surgical History / Comment(s): 2007 or 2008 PTCA with stent to LAD, 09/25/14 [facility] [place] [facility] tx medically, back injections with Dr. Chandra with last one 3 weeks ago, recent bilateral cataract removal with lens implants, bilateral knee replacement, 02/21 2 molar extraction due to cavity under crown and recently root canal under a crown. carpal tunnel surgery, sebacious cyst removed from back 2019 Past Anesthesia/Blood Transfusion Reactions: No Reported Reaction Additional Past Anesthesia/Blood Transfusion Reaction / Comment(s): Pt has never recieved blood. Date of Last Stent Placement:: 2008 Past Psychological History: Anxiety Smoking Status: Former smoker Past Alcohol Use History: Occasional Past Drug Use History: None Reported - Past Family History Mother Family Medical History: Congestive Heart Failure (CHF), Dementia Additional Family Medical History / Comment(s): Mother at 89yrs old. Father Family Medical History: Hypertension, Myocardial Infarction ([place]) Additional Family Medical History / Comment(s): Father at age 82yrs. Medications and Allergies Home Medications Medication Instructions Recorded Confirmed Type Atorvastatin [Lipitor] 80 mg PO HS 12/30/13 02/21/19 History Ezetimibe [Zetia] 10 mg PO HS 12/30/13 02/21/19 History Atenolol [Tenormin] 25 mg PO DAILY 09/16/14 02/21/19 History Losartan Potassium [Cozaar] 50 mg PO DAILY 06/06/15 02/21/19 History Aspirin 81 mg PO HS 06/22/15 02/21/19 History Multivit-Min/FA/Lycopen/Lutein 1 tab PO DAILY 06/22/15 02/22/19 History [Centrum Silver Tablet] Calcium Carbonate/Vitamin D3 1 tab PO DAILY 10/14/16 02/22/19 History [Calcium 600-Vit D3 400 Caplet] Omeprazole [PriLOSEC] 20 mg PO DAILY 10/14/16 02/21/19 History traMADol HCl [Ultram] 50 mg PO BID 10/14/16 02/21/19 History Colchicine [Colcrys] 0.6 mg PO DAILY PRN 02/21/19 02/21/19 History Allergies Allergy/AdvReac Type Severity Reaction Status Date / Time mushroom AdvReac GOUT FLARE Verified 02/22/19 02:42 UP shellfish derived [Shellfish] AdvReac GOUT FLARE Verified 02/22/19 02:42 UP Physical Exam Vitals: Vital Signs Temp Pulse Pulse Resp BP BP Pulse Ox 02/22/19 03:03 18 02/22/19 02:49 97.4 F L 57 L 18 139/85 98 02/22/19 01:52 60 18 143/56 99 02/22/19 01:00 133/52 02/22/19 00:00 59 L 18 124/48 98 02/21/19 23:20 98.8 F 57 L 18 150/62 100 Intake and Output 02/21/19 02/21/19 02/22/19 14:59 22:59 06:59 Other: # Voids 1 Weight 92.986 kg General: non toxic, no distress, appears at stated age, obese Derm: no unusual rashes/lesions no unusual ecchymoses, warm, dry Head: atraumatic, normocephalic, symmetric Eyes: EOMI, no lid lag, anicteric sclera, pupils equal round reactive to light ENT: Nose and ears atraumatic, no thrush, no pharyngeal erythema Neck: No thyromegaly, no cervical lymphadenopathy, trachea midline, supple Mouth: no lip lesion, mucus membranes moist Cardiovascular: S1S2 reg, no murmur, positive posterior tibial pulse bilateral, no edema, capillary refill less than 2 seconds, no epigastric discomfort Lungs: CTA bilateral, no rhonchi, no rales , no accessory muscle use Abdominal: soft, nontender to palpation, no guarding, no appreciable organomegaly, normal bowel sounds Ext: no gross muscle atrophy, muscle strength 5 out of 5 in all 4 extremities grossly, no contractures, Neuro: CN II-XI grossly intact, light touch intact all 4 extremities, finger to nose within normal limits, Psych: Alert, oriented, appropriate affect Results CBC & Chem 7: 02/21/19 23:45 02/21/19 23:45 Labs: Abnormal Lab Results - Last 24 Hours (Table) 02/21/19 02/21/19 Range/Units 23:45 23:45 RBC 3.72 L (3.80-5.40) m/uL Hgb 11.0 L (11.4-16.0) gm/dL Hct 33.7 L (34.0-46.0) % RDW 19.3 H (11.5-15.5) % BUN 28 H (7-17) mg/dL Calcium 10.4 H (8.4-10.2) mg/dL Thrombosis Risk Factor Assmnt - Choose All That Apply Each Risk Factor Represents 3 Points: Age 75 years or older Thrombosis Risk Factor Assessment Total Risk Factor Score: 3 Thrombosis Risk Factor Assessment Level: Moderate Risk Assessment and Plan Plan: Chest discomfort, r/o ASC -Cardiology monitoring -Trend troponin and EKG -Cardiology consult -Continue with aspirin, Lipitor Chronic conditions: Hypertension, hyperlipidemia -Continue with home meds DVT prophylaxis -Heparin The patient is admitted with an anticipated less than 2 midnight stay for evaluation of r/o ACS CODE STATUS: Full Code Discussed with: Patient Anticipated discharge date: 02/22/[address]: Home A total of 35 minutes was spent on the care of this complex patient more than 50% of the time was spent in counseling and care coordination.
[2019-02-22] MEDS: PANTOPRAZOLE 40 MG TABLET PO SCH (08:04)
[2019-02-22] MEDS ORDERED: ATENOLOL 50 MG TAB PO SCH (09:00)
[2019-02-22] MEDS ORDERED: LYCOPEN PO SCH (09:00)
[2019-02-22] MEDS ORDERED: LUTEIN PO SCH (09:00)
[2019-02-22] MEDS ORDERED: [UNRECOGNIZED DRUG - OTHER] PO SCH (09:00)
[2019-02-22] MEDS ORDERED: MULTIVIT MIN PO SCH (09:00)
[2019-02-22] MEDS: CALCIUM CARB-VIT D 500MG-200UN 1 EACH TAB PO SCH (10:02)
[2019-02-22] MEDS: HEPARIN SODIUM,PORCINE 5,000 UNIT/ML 1 ML VIAL SQ SCH ×3 (10:02→23:26)
[2019-02-22] MEDS: NITROGLYCERIN OINT 1 INCH/GM PACKET TOPICAL SCH ×3 (10:02→23:34)
[2019-02-22] MEDS: LOSARTAN 50 MG TAB PO SCH (10:02)
--- NOTE | 2019-02-22 14:56 | CONS ---
CONSULTATION CHIEF COMPLAINT: Chest pain. Delmi is an 88-year-old lady with history of coronary artery disease, status post angioplasty of LAD, who is admitted to the hospital with chest pain. She describes it as a sensation of indigestion in the precordial area, mild intensity, came on at rest without any clear-cut relieving or exacerbating factors. At the time of my evaluation this morning, she is pain free, hemodynamically stable and in no apparent distress. An echocardiogram in the past showed normal LV function with mild aortic stenosis. EKG does not reveal acute ischemic changes and cardiac enzymes have been negative. Creatinine is normal at 0.9. BNP is normal. Hemoglobin is 11. The patient had patent stent on a cardiac catheterization in 2014. PAST MEDICAL HISTORY: Significant for CAD, status post angioplasty, hypertension, dyslipidemia. MEDICATIONS: Include Cozaar 50 daily, Prilosec 20 daily, Zetia 10 daily, Lipitor 80 daily, Tenormin 25 daily and aspirin. ALLERGIES: To SHELLFISH. FAMILY HISTORY: Negative for premature coronary artery disease. SOCIAL HISTORY: Negative for smoking, EtOH abuse or drug abuse. REVIEW OF SYSTEMS: HEENT is unremarkable. CARDIAC: As described above. RESPIRATORY: As described above. GI: Negative. GENITOURINARY: Negative. ALLERGY: Negative. SKIN: Negative. MUSCULOSKELETAL: Significant for arthritis. PSYCHOSOCIAL: Negative. ENDOCRINE: Negative. DERMATOLOGICAL: Negative. CONSTITUTIONAL: Negative. ONCOLOGICAL: Negative. Rest of the system review is not relevant. EXAM: Patient is comfortable at rest. Heart rate is 69 beats per minute. Blood pressure 160/84, respiratory rate is 18. Chest exam reveals diminished air entry at the bases. Heart exam reveals first and second heart sounds. No gallop. No murmur. No rub. Abdomen is soft, nontender. Exam of extremities did not reveal any edema. Peripheral pulses are felt. LABS: Show that 2 sets of troponins are negative. Creatinine is 0.9 hemoglobin is 11. ASSESSMENT: 1. Precordial chest pain. 2. Coronary artery disease status post angioplasty. 3. Hypertension. PLAN: Patient's chest discomfort is atypical. I will schedule her for a stress test tomorrow. If this is negative, she can be discharged home. MMODL / IJN: [id number] /
[2019-02-22] MEDS ORDERED: traMADol 50 MG TAB PO PRN (15:06)
[2019-02-22] MEDS ORDERED: EZETIMIBE 10 MG TAB PO SCH (21:00)
[2019-02-22] MEDS ORDERED: ATORVASTATIN 80 MG TAB PO SCH (21:00)
[2019-02-22] MEDS ORDERED: ZOLPIDEM 5 MG TAB PO SCH (21:00)
[2019-02-23 00:07] LABS: Cholesterol 139 mg/dL (<200); HDL Cholesterol 74 mg/dL (40-60); LDL Cholesterol,Calculated 48 mg/dL (0-99); Triglycerides 84 mg/dL (<150)
[2019-02-23] MEDS: ACETAMINOPHEN TAB 325 MG TAB PO PRN ×2 (00:13→08:03)
[2019-02-23] MEDS ORDERED: DOBUTamine DRIP for NUC MED 500 MG in DEXTROSE/WATER 1 250ML.BAG IV ONE (08:00)
[2019-02-23] MEDS: PANTOPRAZOLE 40 MG TABLET PO SCH (08:03)
[2019-02-23] MEDS: NITROGLYCERIN OINT 1 INCH/GM PACKET TOPICAL SCH (08:04)
[2019-02-23] MEDS: HEPARIN SODIUM,PORCINE 5,000 UNIT/ML 1 ML VIAL SQ SCH (08:04)
[2019-02-23] MEDS: LOSARTAN 50 MG TAB PO SCH (08:04)
[2019-02-23] MEDS: CALCIUM CARB-VIT D 500MG-200UN 1 EACH TAB PO SCH (08:04)
--- NOTE | 2019-02-23 08:16 | PN ---
PROGRESS NOTE Mrs. Chan is an 88-year-old female with known history of coronary artery disease who presented with symptoms of chest discomfort. She has been under increased amount of stress recently. Her symptoms have resolved at this time. She is only complaining of headache. She denies any dizziness or palpitation. She denies any nausea. She continued to be on aspirin once a day, nitro paste, Lipitor 80 mg daily, Zetia 10 mg daily, losartan 50 mg daily. PHYSICAL EXAMINATION: Blood pressure running in the 120s to 150s with the heart rate in the 60s. LUNGS: Clear. HEART: Regular rate and rhythm/ S1, S2. No S3 with systolic murmur. No diastolic murmur. No rub. ABDOMEN: Soft. Nontender. EXTREMITIES: No edema. LAB DATA: Lab data revealed a troponin less than 0.012. Cholesterol 139, LDL of 48. IMPRESSION: 1. Chest discomfort, has some atypical features for ischemic heart disease probably noncardiac. 2. History of coronary artery disease. 3. Hypertension. 4. Hyperlipidemia. RECOMMENDATION: I will stop her nitro paste. We will proceed with the stress test as scheduled. If there is no evidence of inducible ischemia, then no further cardiac workup will be needed. MMODL / IJN: [id number] /
[2019-02-23] MEDS ORDERED: ASPIRIN 325 MG TAB PO SCH (09:00)
[2019-02-23] MEDS ORDERED: ASPIRIN 81 MG PO SCH (09:00)
--- NOTE | 2019-02-23 13:20 | ECHOS ---
STRESS ECHOCARDIOGRAM DATE OF SERVICE: 02/23/2019 INDICATIONS: Chest pain. MEDICATIONS: BASELINE HEART RATE: 70 BASELINE BLOOD PRESSURE: 152/62 MAXIMUM HEART RATE: 125 MAXIMUM BLOOD PRESSURE: 170/64 85% MPHR: 114 100% MPHR: 134 METS: MAXIMUM STAGE REACHED: TOTAL EXERCISE TIME: CLINICAL INFORMATION: Baseline rhythm is sinus mechanism, rate is 70, normal axis and intervals, rare PACs. Baseline blood pressure 152/62 mmHg. Patient received infusion of dobutamine per protocol reaching peak rate 125 beats per minute which is equal to 93% maximum predicted heart rate. Peak blood pressure 170/64 mmHg. Electrocardiograph monitoring revealed no evidence of diagnostic ischemic ST deviation. Baseline echocardiogram revealed normal wall thickness and motion. At peak exercise, there was normal wall motion augmentation with no hypokinesis or dyskinesis. CONCLUSION: 1. Normal electrocardiographic response to dobutamine infusion. 2. Normal stress echocardiogram with no evidence of stress induced ischemia. MMODL / IJN: [id number] /
--- NOTE | 2019-02-23 15:08 | P.DS ---
Providers Date of admission: 02/22/19 01:55 Expected date of discharge: 02/23/19 Attending physician: Matthew Pastor MD Consults: 02/22/19 01:55 Consult Physician Urgent Consulting Provider: [facility] Consult Reason/Comments: chest pain, hx CAD Do you want consulting provider notified?: Yes, Notify in am Primary care physician: [facility] Course: The patient is an 88 yo F with a PMH of CAD (s/p 1 stent in 2008), HTN, and HLD present to the ED w/ complaints of epigastric discomfort. The patient notes that she suddenly developed a vague pressure/burning like discomfort of the epigastric region, constant, with 1 episode of associated nausea and vomiting earlier today. The patient notes that she has been following w/ Dr Segundo for her CAD. The patient underwent an extensive evaluation in the ED w/ WBC count 9.5, Hgb 11, platelets 198, Na 138, K 4.2, BUN 28, Cr 0.9, Troponin < 0.012, and BNP 140. EKG revealed sinus bradycardia @ 58 bpm w/ 1st degree AV block along with LVH. CXR revealed cardiomegaly but otherwise unremarkable. She is being admitted to the medicine service to r/o ACS. Troponin was less than 0.0123 with EKG showing sinus bradycardia with first- degree AV block. Cardiology was consulted and recommended stress test. Stress test was negative and patient was cleared from a cardiology perspective. Patient was resumed on aspirin 81 mg by mouth daily along with high-dose Lipitor. Patient was seen and examined. No acute events overnight. Patient reports complete resolution of her chest pain. She denies any chest pain, shortness of breath or palpitations. No nausea or vomiting. No fever or chills. General: [non toxic], [no distress], [appears at stated age] Derm: [warm], [dry] Head: [atraumatic], [normocephalic], [symmetric] Eyes: [EOMI], [no lid lag], [anicteric sclera] Mouth: [no lip lesion], [mucus membranes moist] Cardiovascular: [S1S2 reg], [no murmur], [positive DP pulse bilateral] Lungs: [CTA bilateral], [no rhonchi, no rales] , [no accessory muscle use] Ext: [no gross muscle atrophy], [no edema], [no contractures] Neuro: [no focal neuro deficits] Psych: [Alert], [oriented], [appropriate affect] Assessment and Plan Chest pain with history of CAD Hypertension Hyperlipidemia Acute coronary syndrome has been ruled out. Stress test has been negative. Patient was cleared from discharge from cardiology perspective. Restart aspirin and Lipitor. Continue Zetia at bedtime. We will resume losartan for hypertension and Lipitor for hyperlipidemia. [Patient is to follow-up with her PCP within 1-2 days of discharge. Follow-up with cardiology within 1 week of discharge. Patient verbalized understanding of the plan.] Pertinent Studies: Chest x-ray, stress test Patient Condition at Discharge: Stable Plan - Discharge Summary New Discharge Prescriptions: Continue Ezetimibe [Zetia] 10 mg PO HS Atorvastatin [Lipitor] 80 mg PO HS Atenolol [Tenormin] 25 mg PO DAILY Losartan Potassium [Cozaar] 50 mg PO DAILY Multivit-Min/FA/Lycopen/Lutein [Centrum Silver Tablet] 1 tab PO DAILY Aspirin 81 mg PO HS traMADol HCl [Ultram] 50 mg PO BID Omeprazole [PriLOSEC] 20 mg PO DAILY Calcium Carbonate/Vitamin D3 [Calcium 600-Vit D3 400 Caplet] 1 tab PO DAILY Colchicine [Colcrys] 0.6 mg PO DAILY PRN PRN Reason: GOUT Discharge Medication List Atorvastatin [Lipitor] 80 mg PO HS 12/30/13 [History] Ezetimibe [Zetia] 10 mg PO HS 12/30/13 [History] Atenolol [Tenormin] 25 mg PO DAILY 09/16/14 [History] Losartan Potassium [Cozaar] 50 mg PO DAILY 06/06/15 [History] Aspirin 81 mg PO HS 06/22/15 [History] Multivit-Min/FA/Lycopen/Lutein [Centrum Silver Tablet] 1 tab PO DAILY 06/22/15 [History] Calcium Carbonate/Vitamin D3 [Calcium 600-Vit D3 400 Caplet] 1 tab PO DAILY 10/14/16 [History] Omeprazole [PriLOSEC] 20 mg PO DAILY 10/14/16 [History] traMADol HCl [Ultram] 50 mg PO BID 10/14/16 [History] Colchicine [Colcrys] 0.6 mg PO DAILY PRN 02/21/19 [History] Follow up Appointment(s)/Referral(s): Clement Segundo MD [STAFF PHYSICIAN] - 03/10/19 8:45 am Leo Barillas MD [Primary Care Provider] - 1-2 days Activity/Diet/Wound Care/Special Instructions: Diet: Heart healthy Follow-up PCP within 1-2 days of discharge. Follow-up with cardiology within 1 week of discharge. Take all medications as advised. Discharge Disposition: HOME SELF-CARE
[2019-02-23 16:04] VITALS: BP 144/82; PULSE 80; RESP 18; TEMP 98.4
== END 2019-02-23 16:56 | disposition home or self-care (01) ==
LOC: EC 23:17 → 1SOBS 02-22 01:55
PROVIDERS: ADMIT Internal Medicine; ATTEND Internal Medicine
DX: R10.13 Epigastric pain (principal); R07.2 Precordial pain; R00.1 Bradycardia, unspecified; R11.2 Nausea with vomiting, unspecified; R51 Headache; R94.4 Abnormal results of kidney function studies; M19.90 Unspecified osteoarthritis, unspecified site; I25.10 Atherosclerotic heart disease of native coronary artery without angina pectoris; Z95.5 Presence of coronary angioplasty implant and graft; I10 Essential (primary) hypertension; E78.5 Hyperlipidemia, unspecified; I44.0 Atrioventricular block, first degree; G89.29 Other chronic pain; M54.5 Low back pain; F41.9 Anxiety disorder, unspecified; Z87.891 Personal history of nicotine dependence; Z79.899 Other long term (current) drug therapy; Z79.82 Long term (current) use of aspirin; Z79.891 Long term (current) use of opiate analgesic; Z91.013 Allergy to seafood; Z91.018 Allergy to other foods; Z82.49 Family history of ischemic heart disease and other diseases of the circulatory system; Z81.8 Family history of other mental and behavioral disorders
CPT/HCPCS: 36415; 71046; 80053; 80061; 83735; 83880; 84484; 85025; 85610; 85730; 93005; 93351; 96360; 96361; 96372; 99285

== ENCOUNTER → 2020-10-05 | Outpatient (CLI) | payer MEDICARE, OTHER | END | disposition home or self-care (01) | LOC: LABWHC1 15:25 | PROVIDERS: ATTEND Internal Medicine | DX: R05 Cough (principal); R06.02 Shortness of breath | CPT/HCPCS: U0003; C9803 ==

== ENCOUNTER 2020-11-01 18:51 | Inpatient (IN) | payer MEDICARE, OTHER ==
[2020-11-01] MEDS ORDERED: SODIUM CHLORIDE 0.9% 500 ML 500 ML IV ONE (19:08)
--- NOTE | 2020-11-01 19:16 | ED ---
General Adult HPI - General Chief complaint: Recheck/Abnormal Lab/Rx Stated complaint: low hemoglobin Time Seen by Provider: 11/01/20 18:55 Source: patient, RN notes reviewed, old records reviewed Mode of arrival: ambulatory Limitations: no limitations - History of Present Illness Initial comments: This is an 89-year-old female presents emergency Department after having visited her ENT and they found that her hemoglobin was low. Patient states she's been weak now for a few weeks and only can sit around because she so tired. Patient states she gets up and she does get somewhat lightheaded and short of breath. Patient also states she did have some black stools a few days ago but it only happened on one day. Patient denies any fever chills or cough per patient denies any chest pain or palpitations. Patient has noted some increased swelling to her legs but there is no calf tenderness. Patient denies being on any blood thinners other than an 81 mg aspirin. Patient denies any abdominal pain patient denies nausea vomiting or diarrhea. Patient denies any history of anemia - Related Data Home Medications Medication Instructions Recorded Confirmed Atorvastatin [Lipitor] 80 mg PO DAILY 12/30/13 11/01/20 Ezetimibe [Zetia] 10 mg PO DAILY 12/30/13 11/01/20 Atenolol [Tenormin] 25 mg PO DAILY 09/16/14 11/01/20 Losartan Potassium [Cozaar] 50 mg PO DAILY 06/06/15 11/01/20 Aspirin 81 mg PO DAILY 06/22/15 11/01/20 Omeprazole [PriLOSEC] 20 mg PO DAILY 10/14/16 11/01/20 traMADol HCl [Ultram] 50 mg PO BID 10/14/16 11/01/20 Colchicine [Colcrys] 0.6 mg PO DAILY PRN 02/21/19 11/01/20 Allergies Allergy/AdvReac Type Severity Reaction Status Date / Time mushroom AdvReac GOUT FLARE Verified 11/01/20 20:02 UP shellfish derived [Shellfish] AdvReac GOUT FLARE Verified 11/01/20 20:02 UP Review of Systems ROS Statement: Those systems with pertinent positive or pertinent negative responses have been documented in the HPI. ROS Other: All systems not noted in ROS Statement are negative. Past Medical History Past Medical History: Coronary Artery Disease (CAD), Chest Pain / Angina, Hyperlipidemia, Hypertension Additional Past Medical History / Comment(s): 09/2014 dobutamine stress test with mild EKG changes and normal echo, chronic low back pain, electrolyte abnormality-low magnesium, heart murmur, bilateral mild macular degeneration, scarlet fever as a child, several ear infections as a child, History of Any Multi-Drug Resistant Organisms: None Reported Past Surgical History: Heart Catheterization, Heart Catheterization With Stent, Joint Replacement, Orthopedic Surgery Additional Past Surgical History / Comment(s): 2007 or 2008 PTCA with stent to LAD, 09/25/14 ccath tx medically, back injections with Dr. Chandra with last one 3 weeks ago, recent bilateral cataract removal with lens implants, bilateral knee replacement, 02/21 2 molar extraction due to cavity under crown and recently root canal under a crown. carpal tunnel surgery, sebacious cyst removed from back 2019 Past Anesthesia/Blood Transfusion Reactions: No Reported Reaction Additional Past Anesthesia/Blood Transfusion Reaction / Comment(s): Pt has never recieved blood. Date of Last Stent Placement:: 2008 Past Psychological History: Anxiety Smoking Status: Never smoker Past Alcohol Use History: Occasional Past Drug Use History: None Reported - Past Family History Mother Family Medical History: Congestive Heart Failure (CHF), Dementia Additional Family Medical History / Comment(s): Mother at 89yrs old. Father Family Medical History: Hypertension, Myocardial Infarction (ME) Additional Family Medical History / Comment(s): Father at age 82yrs. General Exam - General Exam Comments Initial Comments: GENERAL: Patient is well-developed and well-nourished. Patient is nontoxic and well- hydrated and is in mild distress. ENT: Neck is soft and supple. No significant lymphadenopathy is noted. Oropharynx is clear. Moist mucous membranes. Neck has full range of motion without eliciting any pain. EYES: The sclera were anicteric and conjunctiva is pale.. Extraocular movements were intact and pupils were equal round and reactive to light. Eyelids were unremarkable. PULMONARY: Unlabored respirations. Good breath sounds bilaterally. No audible rales rhonchi or wheezing was noted. CARDIOVASCULAR: There is a regular rate and rhythm without any murmurs gallops or rubs. ABDOMEN: Soft and nontender with normal bowel sounds. SKIN: Patient's skin is very pale NEUROLOGIC: Patient is alert and oriented x3. Cranial nerves II through XII are grossly intact. Motor and sensory are also intact. Normal speech, volume and content. Symmetrical smile. MUSCULOSKELETAL: Normal extremities with adequate strength and full range of motion. LYMPHATICS: No significant lymphadenopathy is noted PSYCHIATRIC: Normal psychiatric evaluation. Limitations: no limitations Course Vital Signs 11/01/20 11/01/20 11/01/20 18:53 19:18 19:42 Temperature 98 F 98.8 F Pulse Rate 80 67 Respiratory 18 24 16 Rate Blood Pressure 162/81 129/46 O2 Sat by Pulse 100 97 Oximetry 11/01/20 11/01/20 11/01/20 20:15 20:34 20:52 Temperature 98.5 F Pulse Rate 68 67 67 Respiratory 17 18 18 Rate Blood Pressure 129/39 141/49 O2 Sat by Pulse 97 98 97 Oximetry Medical Decision Making - Medical Decision Making Patient's hemoglobin is 4.9. Occult stool was negative. I ordered 2 units of packed red blood cells per the patient. I spoke with Dr. Vargas he agreed to admit the patient admitted the patient I wrote admitting orders and I consult to GI. - Lab Data Result diagrams: 11/01/20 19:35 11/01/20 19:35 Lab Results 11/01/20 11/01/20 11/01/20 Range/Units 19:35 19:35 19:35 WBC 9.9 (3.8-10.6) k/uL RBC 2.06 L (3.80-5.40) m/uL Hgb 4.9 L* (11.4-16.0) gm/dL Hct 16.5 L* (34.0-46.0) % MCV 80.2 (80.0-100.0) fL MCH 23.9 L (25.0-35.0) pg MCHC 29.8 L (31.0-37.0) g/dL RDW 19.5 H (11.5-15.5) % Plt Count 313 (150-450) k/uL MPV 7.7 Neutrophils % 69 % Lymphocytes % 19 % Monocytes % 7 % Eosinophils % 2 % Basophils % 1 % Neutrophils # 6.8 (1.3-7.7) k/uL Lymphocytes # 1.9 (1.0-4.8) k/uL Monocytes # 0.7 (0-1.0) k/uL Eosinophils # 0.2 (0-0.7) k/uL Basophils # 0.1 (0-0.2) k/uL Hypochromasia Marked Poikilocytosis Moderate Anisocytosis Slight Microcytosis Slight PT 9.8 (9.0-12.0) sec INR 0.9 (<1.2) APTT 19.7 L (22.0-30.0) sec Sodium 136 L (137-145) mmol/L Potassium 5.4 H (3.5-5.1) mmol/L Chloride 103 (98-107) mmol/L Carbon Dioxide 21 L (22-30) mmol/L Anion Gap 12 mmol/L BUN 33 H (7-17) mg/dL Creatinine 1.31 H (0.52-1.04) mg/dL Est GFR (CKD-EPI)AfAm 42 (>60 ml/min/1.73 sqM) Est GFR (CKD-EPI)NonAf 36 (>60 ml/min/1.73 sqM) Glucose 101 H (74-99) mg/dL Calcium 10.2 (8.4-10.2) mg/dL Total Bilirubin 0.9 (0.2-1.3) mg/dL AST 27 (14-36) U/L ALT 12 (4-34) U/L Alkaline Phosphatase 100 (38-126) U/L Total Protein 6.8 (6.3-8.2) g/dL Albumin 4.0 (3.5-5.0) g/dL Stool Occult Blood (Negative) Blood Type Blood Type Confirm Blood Type Recheck Bld Type Recheck Status Antibody Screen Crossmatch Spec Expiration Date 11/01/20 11/01/20 11/01/20 Range/Units 19:35 19:47 19:50 WBC (3.8-10.6) k/uL RBC (3.80-5.40) m/uL Hgb (11.4-16.0) gm/dL Hct (34.0-46.0) % MCV (80.0-100.0) fL MCH (25.0-35.0) pg MCHC (31.0-37.0) g/dL RDW (11.5-15.5) % Plt Count (150-450) k/uL MPV Neutrophils % % Lymphocytes % % Monocytes % % Eosinophils % % Basophils % % Neutrophils # (1.3-7.7) k/uL Lymphocytes # (1.0-4.8) k/uL Monocytes # (0-1.0) k/uL Eosinophils # (0-0.7) k/uL Basophils # (0-0.2) k/uL Hypochromasia Poikilocytosis Anisocytosis Microcytosis PT (9.0-12.0) sec INR (<1.2) APTT (22.0-30.0) sec Sodium (137-145) mmol/L Potassium (3.5-5.1) mmol/L Chloride (98-107) mmol/L Carbon Dioxide (22-30) mmol/L Anion Gap mmol/L BUN (7-17) mg/dL Creatinine (0.52-1.04) mg/dL Est GFR (CKD-EPI)AfAm (>60 ml/min/1.73 sqM) Est GFR (CKD-EPI)NonAf (>60 ml/min/1.73 sqM) Glucose (74-99) mg/dL Calcium (8.4-10.2) mg/dL Total Bilirubin (0.2-1.3) mg/dL AST (14-36) U/L ALT (4-34) U/L Alkaline Phosphatase (38-126) U/L Total Protein (6.3-8.2) g/dL Albumin (3.5-5.0) g/dL Stool Occult Blood Negative (Negative) Blood Type O Positive Blood Type Confirm O Positive Blood Type Recheck No Previous Record Bld Type Recheck Status CABO Indicated Antibody Screen NEGATIVE Crossmatch See Detail Spec Expiration Date 11/04/20202346 Critical Care Time Critical Care Time: Yes Total Critical Care Time: 35 Disposition Clinical Impression: Anemia Disposition: ADMITTED IP TO THIS [facility] Referrals: Meche Patel NPC [Family Provider] - 1-2 days Time of Disposition: 21:00
[2020-11-01 19:42] LABS: Anisocytosis Slight; Basophils # (A) 0.1 k/uL (0-0.2); Basophils % (A) 1 %; Eosinophils # (A) 0.2 k/uL (0-0.7); Eosinophils % (A) 2 %; Hypochromasia Marked; Lymphocytes # (A) 1.9 k/uL (1.0-4.8); Lymphocytes % (A) 19 %; MCH 23.9 pg (25.0-35.0); MCHC 29.8 g/dL (31.0-37.0); MCV 80.2 fL (80.0-100.0); Mean Platelet Volume 7.7; Microcytosis Slight; Monocytes # (A) 0.7 k/uL (0-1.0); Monocytes % (A) 7 %; Neutrophils # (A) 6.8 k/uL (1.3-7.7); Neutrophils % (A) 69 %; Platelet Count 313 k/uL (150-450); Poikilocytosis Moderate; RBC 2.06 m/uL (3.80-5.40); RDW 19.5 % (11.5-15.5); WBC 9.9 k/uL (3.8-10.6)
[2020-11-01 19:47] LABS: HGB 4.9 gm/dL (11.4-16.0)
[2020-11-01 19:48] LABS: HCT 16.5 % (34.0-46.0)
[2020-11-01 19:57] LABS: Calcium 10.2 mg/dL (8.4-10.2); Potassium 5.4 mmol/L (3.5-5.1); Total Bilirubin 0.9 mg/dL (0.2-1.3); Total Protein 6.8 g/dL (6.3-8.2)
[2020-11-01 19:58] LABS: INR 0.9 (<1.2); Prothrombin Time 9.8 sec (9.0-12.0)
[2020-11-01 20:13] LABS: Partial Thromboplastin Time 19.7 sec (22.0-30.0)
[2020-11-01] MEDS ORDERED: SODIUM CHLORIDE 0.9% 1,000 ML IV ONE (21:00)
[2020-11-02 04:58] LABS: Anisocytosis Slight; HCT 20.9 % (34.0-46.0); Hypochromasia Marked; MCH 26.8 pg (25.0-35.0); MCHC 32.5 g/dL (31.0-37.0); MCV 82.5 fL (80.0-100.0); Mean Platelet Volume 7.8; Platelet Count 221 k/uL (150-450); Poikilocytosis Marked; RBC 2.53 m/uL (3.80-5.40); RDW 17.5 % (11.5-15.5); WBC 8.3 k/uL (3.8-10.6)
[2020-11-02 05:42] LABS: HGB 6.8 gm/dL (11.4-16.0)
[2020-11-02] MEDS ORDERED: COLCHICINE 0.6 MG EACH PO PRN (10:57)
[2020-11-02] MEDS ORDERED: NON FORMULARY DRUG (Omeprazole 20 MG Capsule.Dr) PO SCH (11:00)
[2020-11-02] MEDS ORDERED: ACETAMINOPHEN TAB 500 MG TAB PO PRN (11:00)
[2020-11-02] MEDS ORDERED: PEG 3350-NA SULF,BICARB,CL/KCL 4,000 ML BOTTLE PO ONE (16:00)
[2020-11-02] MEDS: traMADol 50 MG TAB PO SCH ×2 (16:02→20:21)
[2020-11-02] MEDS: PANTOPRAZOLE 40 MG TABLET PO SCH ×2 (16:02→16:03)
[2020-11-02] MEDS: ATORVASTATIN 80 MG TAB PO SCH (16:02)
[2020-11-02] MEDS: atenoloL 25 MG TAB PO SCH (16:02)
[2020-11-02] MEDS: EZETIMIBE 10 MG TAB PO SCH (16:02)
--- NOTE | 2020-11-02 18:43 | CONS ---
CONSULTATION DATE OF SERVICE: 11/02/2020. REQUESTING PHYSICIAN: Dr. Meche Patel. REASON FOR CONSULTATION: Severe symptomatic anemia. HISTORY OF PRESENT ILLNESS: The patient is a 40-year-old pleasant white female admitted to hospital with severe symptomatic anemia. She presented with weakness for the last few weeks duration associated with some shortness of breath. About 2 weeks ago she had a couple of episodes of black tarry stools which she attributed to her diet. When she came to the emergency room, she was noted to have a hemoglobin of 4.9 g/dL, needing 2 units of PRBC transfusion. She is feeling somewhat better this morning. She reports no abdominal pain. No nausea, no vomiting. No rectal bleeding. She denies any recent NSAID use. No prior history of peptic ulcer disease. She recalls having a colonoscopy many years ago. Denies being on any anticoagulants. PAST MEDICAL HISTORY: Significant for hypertension, hyperlipidemia, gastroesophageal reflux disease, history of coronary artery disease, bilateral macular degeneration and recurrent ear infections. PAST SURGICAL HISTORY: Cardiac catheterization with stent placement in 2007 and 2008, bilateral knee replacement. MEDICATIONS: Medications at home include: Lipitor, Zetia, Tenormin, Cozaar, aspirin, Prilosec, tramadol and colchicine. ALLERGIES: SHELLFISH AND MUSHROOM. SOCIAL HISTORY: No smoking. No alcohol use. FAMILY HISTORY: Mother had congestive heart failure. Father had coronary artery disease. REVIEW OF SYSTEMS: CARDIOPULMONARY: No chest pain or shortness of breath. : No dysuria or hematuria. Musculoskeletal unremarkable. Skin unremarkable. Endocrine unremarkable. ENT/VISION: Unremarkable. Constitutional: Fatigue, and weakness. No fever, chills, or night sweats. PHYSICAL EXAMINATION: She appears comfortable. No apparent distress. Vital signs stable. Blood pressure is 159/67, pulse 67, temperature 98.7. HEENT examination unremarkable. Conjunctivae pink. Sclerae anicteric. Oral cavity no lesions. NECK: No JVD or lymph node enlargement. CHEST was clear to auscultation. HEART: Regular rate and rhythm. ABDOMEN: Soft. Bowel sounds are positive. No organomegaly. EXTREMITIES: No pedal edema. SKIN: No rashes. NEURO: She is alert and oriented x3. No focal deficits. LABS: Labs done at the time of admission: WBC 9.9, hemoglobin 4.9, platelets are 313, MCV 80. BUN is 33, creatinine 1.31. Stool occult blood is negative. IMPRESSION: 1. Severe symptomatic anemia with a hemoglobin of 4.9 g/dL status post 2 units of PRBCs transfusion. Repeat hemoglobin is 6.8 g/dL. Clinically she does not have any evidence of active ongoing bleeding. About 2 weeks ago, she had 2 days of black tarry stools which she attributed to diet. Most likely we are dealing with occult gastrointestinal blood loss. Her last colonoscopy was many years ago. 2. History of hypertension and hyperlipidemia. 3. History of coronary artery disease status post angioplasty with stent placement in 2008. 4. History of gastroesophageal reflux disease. RECOMMENDATIONS: 1. Agree with PRBC transfusion. 2. Start her on a clear liquid diet. 3. We will proceed with EGD and colonoscopy tomorrow. Discussed with the patient benefits and complications of the procedure and she is agreeable to it. Thank you for this consultation. WES / FRANCY: [id number] /
[2020-11-02] MEDS: MELATONIN 3 MG TABLET PO SCH (20:23)
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
[2020-11-03] MEDS: PANTOPRAZOLE 40 MG TABLET PO SCH ×2 (06:22→17:42)
[2020-11-03 08:48] LABS: Anisocytosis Slight; Basophils # (A) 0.1 k/uL (0-0.2); Basophils % (A) 1 %; Eosinophils # (A) 0.1 k/uL (0-0.7); Eosinophils % (A) 1 %; HCT 26.5 % (34.0-46.0); Hypochromasia Marked; Lymphocytes # (A) 0.7 k/uL (1.0-4.8); Lymphocytes % (A) 7 %; MCH 26.1 pg (25.0-35.0); MCHC 31.3 g/dL (31.0-37.0); MCV 83.3 fL (80.0-100.0); Monocytes # (A) 0.5 k/uL (0-1.0); Monocytes % (A) 5 %; Neutrophils # (A) 8.1 k/uL (1.3-7.7); Neutrophils % (A) 85 %; Platelet Count 234 k/uL (150-450); Poikilocytosis Marked; RBC 3.18 m/uL (3.80-5.40); RDW 17.3 % (11.5-15.5); WBC 9.6 k/uL (3.8-10.6)
[2020-11-03 08:58] LABS: Calcium 9.6 mg/dL (8.4-10.2); Potassium 4.2 mmol/L (3.5-5.1)
[2020-11-03 09:02] LABS: HGB 8.3 gm/dL (11.4-16.0)
[2020-11-03] MEDS: atenoloL 25 MG TAB PO SCH (09:03)
[2020-11-03] MEDS: traMADol 50 MG TAB PO SCH ×2 (09:03→21:54)
[2020-11-03] MEDS: EZETIMIBE 10 MG TAB PO SCH (09:03)
[2020-11-03] MEDS: ATORVASTATIN 80 MG TAB PO SCH (09:03)
[2020-11-03] MEDS ORDERED: PROPOFOL 10 MG/ML 20 ML VIAL IV ONE (12:54)
[2020-11-03] MEDS ORDERED: IV FLUID CONTINUATION 1,000 ML IV ONE (13:35)
--- NOTE | 2020-11-03 13:38 | P.PCN ---
Date of Procedure: 11/03/20 Description of Procedure: Brief history: 10-year-old female who presented to the hospital with severe symptomatic anemia. Patient had been reporting dark-colored bowel movements and was found to have a hemoglobin of 4.9 on presentation subsequently found to be 6.8 status post transfusion of 2 units of packed red blood cells. She denied any history of NSAID use or peptic ulcer disease. Remote history of colonoscopy. No prior EGD. Denies any anticoagulation therapy. Procedure performed: Esophagogastroduodenoscopy with biopsy and gold probe ablation and Endo Clip placement Colonoscopy Estimated blood loss: Minimal. Preoperative diagnosis: GI bleed, melena, anemia of acute blood loss Anesthesia: MAC Procedure: After informed consent was obtained from the patient was brought into the endoscopy unit and IV sedation was administered by anesthesia under continuous monitoring. Initially upper endoscopy was done. The Olympus GF 190 video endoscope was inserted into the mouth and esophagus intubated without any difficulty and was gradually advanced into the stomach and duodenum and carefully examined. The bulb and second part of the duodenum appeared normal, with biopsies taken. 2 nonbleeding arteriovenous formations were noted in the second portion of the duodenum which were treated with gold probe ablation. The scope was then withdrawn into the stomach adequately insufflated with air and upon careful examination the antrum and body, cardia and fundus appeared normal, with biopsies of antrum and body taken. In the gastric body approximate 10 cm distal to the GE junction there was an area of erythema appearing to be an arteriovenous malformation which was cauterized with gold probe ablation with some bleeding and Endo Clip placement for hemostasis. The scope was then withdrawn into the esophagus. The GE junction was located at 40 cm to the incis ors. It appeared regular with no erythema erosions or ulcerations. Rest of the esophagus appeared normal. Patient tolerated the procedure well. At this time the patient continued to remain sedation. Initial digital rectal examination was normal. Olympus CF 190 video colonoscope was then inserted into the rectum and gradually advanced to the cecum without any difficulty. Careful examination was performed as the scope was gradually being withdrawn. The prep was excellent. The cecum, ascending colon, transverse colon, descending colon, sigmoid colon and rectum appeared normal, with multiple diverticula noted throughout the entire colon. No active bleeding or old blood was noted. Retroflexion was performed in the rectum and no lesions were noted, large internal and external hemorrhoids were noted. Patient tolerated the procedure well. Impression: 1. 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 2 nonbleeding duodenal AVM treated with gold probe ablation. Biopsies of the duodenum, antrum and body. 2. Moderate pandiverticulosis, internal and external hemorrhoids. No active bleeding or old blood noted. Recommendations: Findings of this examination were discussed with the patient as well as the nursing team. Okay for full liquid diet. Continue to monitor hemoglobin and hematocrit and transfuse as needed. Continue Protonix therapy. Continue to avoid NSAID. Await pathology from biopsies. Full liquid diet today okay to advance tomorrow if stable.
[2020-11-03] MEDS: MELATONIN 3 MG TABLET PO SCH (21:54)
[2020-11-04] MEDS: PANTOPRAZOLE 40 MG TABLET PO SCH ×2 (06:41→17:41)
[2020-11-04] MEDS: EZETIMIBE 10 MG TAB PO SCH (08:25)
[2020-11-04] MEDS: atenoloL 25 MG TAB PO SCH (08:25)
[2020-11-04] MEDS: ATORVASTATIN 80 MG TAB PO SCH (08:25)
[2020-11-04] MEDS: traMADol 50 MG TAB PO SCH ×2 (08:26→21:55)
--- NOTE | 2020-11-04 12:12 | P.PN ---
Subjective Progress Note Date: 11/04/20 No new complaintss. Hgb stable following EGD/[place]. Multiple AVMs s/p APC and clipping. Diverticulosis without bleeding. Pt tolerating full liquid diet. Objective - Vital Signs Vital signs: Vital Signs Temp 97.8 F 11/04/20 08:00 Pulse 99 11/04/20 08:00 Resp 18 11/04/20 08:00 BP 128/68 11/04/20 08:00 Pulse Ox 99 11/04/20 08:00 Intake & Output 11/03/20 11/04/20 11/04/20 18:59 06:59 18:59 Intake Total 900 Balance 900 Intake: IV 500 Oral 400 Other: Voiding Method Toilet Toilet # Voids 1 1 - Exam Gen: awake, alert HEENT: normocephalic, atraumatic, good hearing acuity, moist mucous membranes Resp: good air exchange, breathing comfortably with no accessory muscle use CVS: good distal perfusion x 4, GI: soft, NTTP, ND : no SPT, no CVAT, penaloza catheter not present MSK: no pitting edema, no clubbing Neuro: non-focal, moving all extremities Psych: cooperative, euthymic mood - Labs CBC & Chem 7: 11/03/20 08:29 11/03/20 08:29 Assessment and Plan Assessment: Acute blood loss anemia Upper GI bleed -Admit to telemetry, and patient -Trend CBCs -Status post endoscopy demonstrating multiple AVMs status post photocoagulation and clipping -GI consult -Full liquid diet, advance as tolerated -Transfuse for hemoglobin less than 7 -Continue to hold aspirin -PPI twice a day CAD HTN Hyperlipidemia Morbid obesity Osteoarthritis -Home medications reviewed and reconciled Patient is a full code DVT prophylaxis is contraindicated
--- NOTE | 2020-11-04 15:17 | PN ---
PROGRESS NOTE DATE OF SERVICE: November 04, 2020 Patient is an 89-year-old pleasant white female admitted to hospital with severe symptomatic anemia and hemoglobin of 4.4 g/dL requiring 2 units of PRBC transfusion. She underwent an EGD and colonoscopy by Dr. Rao yesterday which revealed a gastric arteriovenous malformation that was treated with gold probe, ablation and Endoclip placement. Colonoscopy revealed small internal and external hemorrhoids and moderate diverticulosis. The patient is doing well today. She denies any abdominal pain. No nausea, no vomiting. No rectal bleeding or melena. Hemoglobin today was 8.3 g/dL. PHYSICAL EXAMINATION: Appears comfortable. Vital signs stable. Blood pressure 124/57, pulse rate 84, temperature 98.1. HEENT examination unremarkable. Conjunctivae pink. Sclerae anicteric. Oral cavity no lesions. NECK: No JVD or lymph node enlargement. CHEST was clear to auscultation. HEART: Regular rate and rhythm. ABDOMEN: Soft. Bowel sounds are positive. No organomegaly. EXTREMITIES: No pedal edema. SKIN: No rashes. NEURO: She is alert and oriented x3. No focal deficits. LABS: From yesterday: Hemoglobin 8.3 g/dL. Rest of the labs are within normal limits. IMPRESSION: Severe symptomatic anemia with a hemoglobin of 4.5, requiring a total of 3 units of PRBC transfusion. Today's hemoglobin is 8.3 g/dL status post EGD and colonoscopy yesterday that showed gastric AVM status post cautery and Endoclip placement. Colonoscopy revealed diverticulosis and hemorrhoids. No further bleeding noted. Hemoglobin stable at 8.3 g/dL. RECOMMENDATIONS: 1. Advance to a regular diet. 2. Repeat CBC in the morning. 3. If it is stable, she can be discharged home tomorrow with outpatient followup in 2 weeks. Thank you for this consultation. MMODL / IJN: [id number] /
[2020-11-04] MEDS: MELATONIN 3 MG TABLET PO SCH (21:56)
[2020-11-05] MEDS: PANTOPRAZOLE 40 MG TABLET PO SCH (07:09)
[2020-11-05 08:01] LABS: Anisocytosis Slight; Basophils % (A) 1 %; Eosinophils # (A) 0.2 k/uL (0-0.7); Eosinophils % (A) 3 %; HCT 23.6 % (34.0-46.0); HGB 7.8 gm/dL (11.4-16.0); Hypochromasia Marked; Lymphocytes # (A) 1.3 k/uL (1.0-4.8); Lymphocytes % (A) 18 %; MCHC 33.3 g/dL (31.0-37.0); Mean Platelet Volume 7.5; Monocytes # (A) 0.5 k/uL (0-1.0); Monocytes % (A) 7 %; Neutrophils % (A) 71 %; Platelet Count 213 k/uL (150-450); Poikilocytosis Marked; RBC 2.81 m/uL (3.80-5.40); RDW 18.3 % (11.5-15.5); WBC 7.1 k/uL (3.8-10.6)
--- NOTE | 2020-11-05 08:44 | PN ---
PROGRESS NOTE DATE OF SERVICE: November 05, 2020 INTERVAL HISTORY: Patient is an 89-year-old pleasant white female admitted to the hospital with acute severe symptomatic anemia and hemoglobin of 5 g/dL. She underwent EGD and colonoscopy by Dr. Rao 2 days ago that showed gastric arteriovenous malformation with active bleeding, status post cautery and Endoclip placement. Patient is doing well. She had no further episodes of bleeding. No nausea, no vomiting. She is complaining of some cough for the last 2 weeks with wheezing today. PHYSICAL EXAMINATION: GENERAL: She appears comfortable. VITAL SIGNS: Stable. Blood pressure 157/65, pulse rate 62, temperature 98.2. HEENT: Examination unremarkable. Conjunctivae are pink. Sclerae anicteric. Oral cavity no lesions. NECK: No JVD or lymph node enlargement. CHEST: Clear to auscultation. HEART: Regular rate and rhythm. ABDOMEN: Soft, bowel sounds positive, no organomegaly. EXTREMITIES: No pedal edema noted. NEURO: She is alert and oriented x3. No focal deficits. LABS: From today WBC 7.1, hemoglobin 7.8, platelets normal. IMPRESSION: 1. Severe symptomatic anemia with intermittent dark-colored stools, status post EGD and colonoscopy by Dr. Rao 2 days ago that showed gastric AVM with active bleeding, status post cautery and Endoclip placement. Hemoglobin remains stable at 7.8 g/dL. The patient has no further bleeding. 2. Chronic cough of 2 weeks duration with expiratory wheezing. RECOMMENDATIONS: 1. Advance to regular diet. 2. Continue Protonix 40 mg daily. 3. She can be discharged home from GI standpoint and she will follow with Dr. Hartmann in 2 weeks. Thank you for this consultation. MMODL / IJN: [id number] /
[2020-11-05] MEDS: traMADol 50 MG TAB PO SCH (08:46)
[2020-11-05] MEDS: ATORVASTATIN 80 MG TAB PO SCH (08:46)
[2020-11-05] MEDS: EZETIMIBE 10 MG TAB PO SCH (08:48)
[2020-11-05] MEDS: atenoloL 25 MG TAB PO SCH (08:48)
[2020-11-05 09:00] VITALS: BP 129/75; PULSE 60; RESP 18; TEMP 98.8
--- NOTE | 2020-11-05 13:12 | P.DS ---
Providers Date of admission: 11/01/20 21:00 Expected date of discharge: 11/05/20 Attending physician: Matthew Pastor MD Consults: 11/01/20 21:00 Consult Physician Urgent Consulting Provider: Sandra King Consult Reason/Comments: Anemia Do you want consulting provider notified?: Yes Primary care physician: Shawn Calvert MD Hospital Course: History of presenting complaint: This is a pleasant 89-year-old patient, was chronic stable medical conditions include coronary artery disease hyperlipidemia, hypertension, chronic low back pain macular degeneration. Patient had a angioplasty with stent to LAD in 2014. Also has had back injections by Dr. Hanson. Patient had gone to see her ENT doctor that she had found that hemoglobin was rather low and she was admitted for the same. Patient has been feeling weak and tired for a few weeks and often has to sit down because feeling so tired. Some lightheadedness and some shortness of breath. She is also had some dock stools with to 3 days. Some swelling of the lower extremity. Does take aspirin for quite some time. No prior history of EGD. Initial hemoglobin was found to be 4.9. This morning patient was receiving her third unit of blood. This morning the hemoglobin was 6.8 Hospital Course: Acute blood loss anemia Upper GI bleed CAD HTN Hyperlipidemia Morbid obesity Osteoarthritis Patient was admitted to telemetry, had GI consult. She underwent endoscopy which demonstrated multiple AVMs status post photocoagulation and clipping. She required 2 units of PRBCs. Her diet was advanced from full liquid to regular, and her hemoglobins remained stable following the procedure. Her medications including aspirin, NSAIDs were held. Her PPI was up titrated to twice a day. Patient was discharged home with instructions to follow-up with GI in 3 weeks, and to hold her aspirin until that time. I spent 40 minutes coordinating this complex discharge Assessment: Gen: awake, alert HEENT: normocephalic, atraumatic, good hearing acuity, moist mucous membranes Resp: good air exchange, breathing comfortably with no accessory muscle use CVS: good distal perfusion x 4, GI: soft, NTTP, ND : no SPT, no CVAT, penaloza catheter not present MSK: no pitting edema, no clubbing Neuro: non-focal, moving all extremities Psych: cooperative, euthymic mood Patient Condition at Discharge: Good Plan - Discharge Summary Discharge Rx Participant: No New Discharge Prescriptions: New Pantoprazole [Protonix] 40 mg PO AC-BID #60 tablet.dr Cunningham Ezetimibe [Zetia] 10 mg PO DAILY Atorvastatin [Lipitor] 80 mg PO DAILY Atenolol [Tenormin] 25 mg PO DAILY Losartan Potassium [Cozaar] 50 mg PO DAILY traMADol HCl [Ultram] 50 mg PO BID Discontinued Aspirin 81 mg PO DAILY Omeprazole [PriLOSEC] 20 mg PO DAILY Colchicine [Colcrys] 0.6 mg PO DAILY PRN PRN Reason: GOUT Discharge Medication List Atorvastatin [Lipitor] 80 mg PO DAILY 12/30/13 [History] Ezetimibe [Zetia] 10 mg PO DAILY 12/30/13 [History] Atenolol [Tenormin] 25 mg PO DAILY 09/16/14 [History] Losartan Potassium [Cozaar] 50 mg PO DAILY 06/06/15 [History] traMADol HCl [Ultram] 50 mg PO BID 10/14/16 [History] Pantoprazole [Protonix] 40 mg PO AC-BID #60 tablet. 11/05/20 [Rx] Follow up Appointment(s)/Referral(s): Meche Patel, NPC [Family Provider] - 1-2 days (Patient to schedule apppointment, as office is closed at time of discharge. Ensure office is aware that this is an appointment, following a hospital stay.) Patient Instructions/Handouts: Anemia (DC) Discharge Disposition: HOME SELF-CARE
== END 2020-11-05 13:48 | disposition home or self-care (01) | DRG 378 ==
LOC: EC 18:51 → 3SCARD 21:00
PROVIDERS: ADMIT Internal Medicine; ATTEND Internal Medicine
PROC: 0W3P8ZZ Control Bleeding in Gastrointestinal Tract, Via Natural or Artificial Opening Endoscopic (ICD-10-PCS; 2020-11-03)
PROC: 30233N1 Transfusion of Nonautologous Red Blood Cells into Peripheral Vein, Percutaneous Approach (ICD-10-PCS; 2020-11-03)
PROC: 0DB68ZX Excision of Stomach, Via Natural or Artificial Opening Endoscopic, Diagnostic (ICD-10-PCS; principal; 2020-11-03 12:00)
PROC: 0DB78ZX Excision of Stomach, Pylorus, Via Natural or Artificial Opening Endoscopic, Diagnostic (ICD-10-PCS; 2020-11-03 12:00)
PROC: 0DJD8ZZ Inspection of Lower Intestinal Tract, Via Natural or Artificial Opening Endoscopic (ICD-10-PCS; 2020-11-03 12:00)
DX: K31.811 Angiodysplasia of stomach and duodenum with bleeding (principal); Q27.30 Arteriovenous malformation, site unspecified; Z68.41 Body mass index [BMI] 40.0-44.9, adult; D62 Acute posthemorrhagic anemia; E78.5 Hyperlipidemia, unspecified; I10 Essential (primary) hypertension; G89.29 Other chronic pain; M54.5 Low back pain; K64.8 Other hemorrhoids; K64.4 Residual hemorrhoidal skin tags; K57.30 Diverticulosis of large intestine without perforation or abscess without bleeding; Z79.82 Long term (current) use of aspirin; Z79.899 Other long term (current) drug therapy; Z87.891 Personal history of nicotine dependence; Z95.5 Presence of coronary angioplasty implant and graft; K21.9 Gastro-esophageal reflux disease without esophagitis; E66.01 Morbid (severe) obesity due to excess calories; F41.9 Anxiety disorder, unspecified; M19.91 Primary osteoarthritis, unspecified site; Z98.41 Cataract extraction status, right eye; Z98.42 Cataract extraction status, left eye; Z96.653 Presence of artificial knee joint, bilateral; Z96.1 Presence of intraocular lens; I25.119 Atherosclerotic heart disease of native coronary artery with unspecified angina pectoris; Z20.822 Contact with and (suspected) exposure to COVID-19
CPT/HCPCS: 36415; 43239; 43255; 45378; 80048; 80053; 82272; 85025; 85027; 85610; 85730; 86850; 86900; 86901; 86920; 87635; 88305; 93005; 96360; 99291

== ENCOUNTER → 2021-01-21 | Outpatient (CLI) | payer MEDICARE, OTHER ==
--- NOTE | 2021-01-22 02:43 | MR ---
EXAMINATION TYPE: MR lumbar spine wo con DATE OF EXAM: 01/21/2021 COMPARISON: 10/21/2018 HISTORY: Low back pain into right thigh for 4 years. Multiplanar multiecho imaging of the lumbar spine without contrast. There is moderately severe narrowing of the L4-5 disc space. There is 1 cm anterior subluxation of L4 in relation L5. There is less severe narrowing at L1-3 disc space. There is no compression fracture. There is no lumbar paraspinal mass. Sacroiliac joints are intact. There is facet arthropathy togethe r with subluxation at L4-5 and resultant spinal stenosis. There is no significant spinal stenosis at the other levels of the lumbar spine. There is a a few millimeter retrolisthesis at L2-3. IMPRESSION: There is improvement in the posterior disc herniation at L2-3 compared to old exam. There is L4-[address]-degree spondylolisthesis with L4-5 spinal stenosis not significantly different than last exam. No acute fracture seen. Moderately severe degenerative disc space narrowing at L4-5.
== END | disposition home or self-care (01) ==
LOC: RADMRIMAIN 12:23
PROVIDERS: ATTEND Physical Medicine & Rehabilitation
DX: M41.26 Other idiopathic scoliosis, lumbar region (principal); M43.16 Spondylolisthesis, lumbar region; M47.817 Spondylosis without myelopathy or radiculopathy, lumbosacral region; M51.17 Intervertebral disc disorders with radiculopathy, lumbosacral region; M48.062 Spinal stenosis, lumbar region with neurogenic claudication; M47.812 Spondylosis without myelopathy or radiculopathy, cervical region; M47.814 Spondylosis without myelopathy or radiculopathy, thoracic region
CPT/HCPCS: 72148

== ENCOUNTER → 2021-03-29 | Outpatient (CLI) | payer MEDICARE, OTHER ==
[2021-03-29 11:23] VITALS: BP 149/74; PULSE 69; RESP 18; TEMP 97.9
--- NOTE | 2021-03-29 15:19 | P.PAINCN ---
History of Present Illness - Reason for Consult Consult date: 03/29/21 - History of Present Illness This is 89 years old female with a chronic history of severe low back pain, she was diagnosed with lumbar spondylosis with lumbar facet arthropathy, and lumbar degenerative disc disease, lumbar spinal stenosis, patient was treated at the pool at the surgical [facility], she had multiple interventional pain procedures including radiofrequency thermocoagulation of the medial branch lumbar area, Dr. Thompson has done RFA of the medial branch lumbar area and 6 months ago, patient had excellent pain relief, she currently complaining of severe localized pain in the low back area, it snouts radiated to the lower extremity she denies any motor or sensory deficit she denies any fever or night sweats, and there is no change in bowel movements or urination Past Medical History Past Medical History: Coronary Artery Disease (CAD), Cancer, Chest Pain / Angina, Eye Disorder, GERD/Reflux, Hearing Disorder / Deafness, Hyperlipidemia, Hypertension, Osteoarthritis (OA) Additional Past Medical History / Comment(s): Hx minor skin cancer. Hearing aid use. Hx Anemia, received 3 units of blood 10/28. 09/2014 dobutamine stress test with mild EKG changes and normal echo, chronic low back pain, electrolyte abnormality-low magnesium, heart murmur, bilateral mild macular degeneration, scarlet fever as a child, several ear infections as a child, History of Any Multi-Drug Resistant Organisms: None Reported Past Surgical History: Appendectomy, Heart Catheterization, Heart Catheterization With Stent, Joint Replacement, Orthopedic Surgery Additional Past Surgical History / Comment(s): 2007 or 2008 PTCA with stent to LAD, 09/25/14 ccath tx medically, back injections, bilateral cataract removal with lens implants, bilateral knee replacement, 2 molar extraction due to cavity under crown and root canal under a crown, carpal tunnel surgery, sebacious cyst removed from back. Past Anesthesia/Blood Transfusion Reactions: No Reported Reaction Additional Past Anesthesia/Blood Transfusion Reaction / Comm: Pt has never r ecieved blood. Date of Last Stent Placement:: 2008 Smoking Status: Never smoker - Past Family History Mother Family Medical History: Congestive Heart Failure (CHF), Dementia Additional Family Medical History / Comment(s): Mother at 89yrs old. Father Family Medical History: Hypertension, Myocardial Infarction ([place]) Additional Family Medical History / Comment(s): Father at age 82yrs. Brother(s) Family Medical History: Cancer Additional Family Medical History / Comment(s): Multiple Myeloma. Medications and Allergies Home Medications Medication Instructions Recorded Confirmed Type Atorvastatin [Lipitor] 80 mg PO DAILY 12/30/13 03/29/21 History Ezetimibe [Zetia] 10 mg PO DAILY 12/30/13 03/29/21 History Atenolol [Tenormin] 25 mg PO DAILY 09/16/14 03/29/21 History Losartan Potassium [Cozaar] 50 mg PO DAILY 06/06/15 03/29/21 History traMADol HCl [Ultram] 50 mg PO BID 10/14/16 03/29/21 History Pantoprazole [Protonix] 40 mg PO AC-BID #60 tablet. 11/05/20 03/29/21 Rx Allergies Allergy/AdvReac Type Severity Reaction Status Date / Time mushroom AdvReac GOUT FLARE Verified 03/29/21 10:46 UP shellfish derived [Shellfish] AdvReac GOUT FLARE Verified 03/29/21 10:46 UP Physical Exam Vitals: Vital Signs Temp Pulse Resp BP 03/29/21 11:17 97.9 F 69 18 149/74 Physical Examinations : -Constitutiona : Cooperative , not in acute distress . -HEENT : nech : supple , no Lymphadenopathy , normal thyroid size . : eyes : no ptosis , no icterus, no photophobia . - neurologic : Cranial nerve II to XII intact , no focal neurological deffecit . -psychatric : alert , oriented X 3 , appropriate affect , intact judgment and insight . -Lymphatic : no Lymphadenopathy . - musculoskeltal : Lumber spine moter stegnth lower extremities ,thigh and legs 5/5 Right side , 5/5 Left side deep tendon reflexes : normal Knee Jerk , normal ankle Jerk lumber facet Loading Test =positive Right , positive Left Range of motion of the lumbar spine Flexion 30 degrees, extension 10 degrees strait leg raising test = negative bilaterally Fabere test= negative bilaterally . tenderness over the Sacroiliac joint on the Right , and Left sides Results Comments: MRI of the lumbar spine= lumbar spinal stenosis, degenerative disc disease, lumbar spondylosis with lumbar facet arthropathy Assessment and Plan Plan: Assessment and plan=1- Lumbar spondylosis with lumbar facet arthropathy. 2-lumbar spinal stenosis. 3-lumbar degenerative disc disease. Patient had radiofrequency thermocoagulation of the median branch lumbar area done and blower at the surgical Center was more than 6 months ago , and the patient having clinical finding of facetogenic component, she could benefit from repeat RFA of the medial branch , L4, L5 bilaterally Time with Patient: Greater than 30 PQRS Measure Charge Sheet Measure #130: Documentation of Current Meds in Medical Chart: Patient's medications documented in chart Measure #226: Tobacco Use: Screen & Cessation Intervention: Pt not a tobacco user Measure #111: Pneumonia Vaccination: Pneumococcal vaccine administered or previously received Measure #47: Advance Care Plan: Advance care planning discussed & documented, pt chose/unable to give Measure #412: Opioid Treatment Agreement: No documentation of signed opioid treatment agreement Measure #408: Opioid Therapy Follow-up Evaluation: Patient had NO f/u eval minimum every 3 months during opioid therapy Measure #317: Preventitive Care & Scrn High Bld Press & F/U: Pre-hypertensive or hypertensive BP documented, pt will f/u with PCP Measure #128: Body Mass Index (BMI) Screening & Follow-up: BMI documented ABOVE normal parameters - f/u documented Measure #131: Pain Assessment & Follow-up: Pain positive & plan documented, Follow-up scheduled Measure #431: Unhealthy Alcohol Use Preventative Care & Scrn: Patient not identified as an unhealthy alcohol user Mode of Arrival: Walker - Pain Location Lower Back Non-Pharmacological Interventions: Heat, Home Exercise, Inactivity Pharmacological Interventions: Medication PQRS Narrative: Smoking Status Former smoker Blood Pressure 149/74 Pain Intensity [Lower Back] 7 Scale Used Numeric (1 - 10) Hx Alcohol Use (MH) Yes Home Medications: Ambulatory Orders Atorvastatin [Lipitor] 80 mg PO DAILY 12/30/13 Ezetimibe [Zetia] 10 mg PO DAILY 12/30/13 Atenolol [Tenormin] 25 mg PO DAILY 09/16/14 Losartan Potassium [Cozaar] 50 mg PO DAILY 06/06/15 traMADol HCl [Ultram] 50 mg PO BID 10/14/16 Pantoprazole [Protonix] 40 mg PO AC-BID #60 tablet. 11/05/20
== END ==
LOC: PNWHC3 10:23
PROVIDERS: ATTEND Specialist
DX: M48.061 Spinal stenosis, lumbar region without neurogenic claudication (principal); M47.896 Other spondylosis, lumbar region; M46.96 Unspecified inflammatory spondylopathy, lumbar region; M51.36 Other intervertebral disc degeneration, lumbar region
CPT/HCPCS: 99211

== ENCOUNTER 2021-04-28 06:58 | Day surgery (SDC) | payer MEDICARE, OTHER ==
[2021-04-27 09:36] VITALS: BMI 38.4
[~2021-04-28 06:58] MED LIST: LACTATED RINGERS 1,000 ML IV SCH
[2021-04-28 07:12] VITALS: TEMP 97.8
[2021-04-28] MEDS ORDERED: LACTATED RINGERS 1,000 ML IV ONE (07:12)
[2021-04-28] MEDS ORDERED: fentaNYL (PF) 50 MCG/ML 2 ML AMP ONE (07:54)
[2021-04-28] MEDS ORDERED: TRIAMCINOLONE ACETONIDE 40 MG/ML 1 ML VIAL ONE (07:54)
[2021-04-28] MEDS ORDERED: ROPIVACAINE 5MG/ML 20ML VIAL ONE (07:54)
[2021-04-28] MEDS ORDERED: MIDAZOLAM 2 MG/2 ML VIAL ONE (07:54)
--- NOTE | 2021-04-28 08:31 | P.PCN ---
Date of Procedure: 04/28/21 Procedure(s) Performed: PREOPERATIVE DIAGNOSIS: 1-Lumbar Spondylosis with Facet Arthropathy without myelopathy. 2- Lumber degenerative disc disease. POSTOPERATIVE DIAGNOSIS: 1- Lumbar Spondylosis with Facet Arthropathy without myelopathy. 2- Lumber degenerative disc disease. PROCEDURES : Bilateral Radiofrequency thermocoagulation, L3 , L4 , and L5 medial branch, with fluoroscopic guidance (fluoroscopy images available in the radiology department) ( to denervate the facet joint at bilateral L4-5 ,and L5-S1 levels ). ANESTHESIA: Monitored anesthesia care as per anesthesia department . EBL: Minimal PROCEDURE INDICATION: The patient with low back pain secondary to lumbar facet arthropathy who had more than 50% relief of her pain with previous diagnostic lumbar medial branch block with bupivacaine. PROCEDURE DESCRIPTION / TECHNIQUE: The patient was seen and identified in the preoperative area. Risks, benefits, complications, including but not limited to risk of infection ,bleeding , allergic reactions to the medications and no complete pain releife , and alternatives were discussed with the patient, the patient agreed to proceed with the procedure and signed the consent. IV was started. Vital signs remained stable throughout the procedure. Patient was taken to the OR and time out was completed. The patient was placed in the prone position on the procedure table. The lumber area was prepped and draped in the usual sterile fashion. . Vital signs were closely monitored during the procedure .IV sedation was used during the procedure to decrease patients anxiety. Using AP and then oblique fluoroscopy, the ``eye of the Wilfrid dog co rresponding to the connection between the superior and transverse articular processes of right L3, L4, and L5 were identified, marked, and localized with 1% lidocaine. Subsequently, a 18 guage 150-mm radiofrequency cannula with a 10-mm active tip was advanced guided by fluoroscopy to each of the``eyes of the Wilfrid dog at right L3, L4, and L5. Each site then underwent sensory testing at 50 Hz and 0 to 1 volt and motor testing at 2.5 Hz and 0 to 3 volt with local stimulation, but no radicular symptoms down the legs. Thereafter each sites underwent radiofrequency thermocoagulation at 80 degrees celsius for 90 seconds after injecting 0.5 ml of PF Ropivacaine 1ml, then after the thermocoagulation done , 1 ml of the block solution containing Kenalog 20 mg and 3 ml of Ropivacaine 0.5% was injected at the right L3 , L4 , and L5 , levels after negative aspiration of CSF and blood and with no paresthesias. Cannulas were retracted while injecting lidocaine 1% until the needle is out. The same procedure was repeated at the level of Left L3, L4, and L5 levels. At the end of the procedure, the skin was cleansed and bandages were applied. COMPLICATIONS: No acute complications. DISPOSITION / PLANS: The patient was placed in a supine position and transferred to the recovery area in a stable condition for observation and was discharged from the recovery room after meeting discharge criteria. Home discharge instructions given to the patient by the staff. The patient was reexamined prior to discharge. The patient will schedule a follow up in the clinic in 2-4 weeks.
[2021-04-28] MEDS ORDERED: IV FLUID CONTINUATION 1,000 ML IV ONE (08:35)
[2021-04-28 08:41] VITALS: RESP 16
[2021-04-28 08:45] VITALS: BP 121/59; PULSE 52
--- NOTE | 2021-04-28 11:14 | FL ---
EXAMINATION TYPE: FL guided pain mgmt statistic DATE OF EXAM: 04/28/2021 FLUOROSCOPY Fluoroscopy time of 20 seconds was used during lumbar radiofrequency ablation. 8 image/s document/s the procedure.
== END 2021-04-28 09:20 | disposition home or self-care (01) ==
LOC: ORPAIN 06:58
PROVIDERS: ATTEND Specialist
DX: M47.816 Spondylosis without myelopathy or radiculopathy, lumbar region (principal); M51.36 Other intervertebral disc degeneration, lumbar region; Z91.013 Allergy to seafood
CPT/HCPCS: 64635; 64636; J2250; J3301; J3010; J2795

== ENCOUNTER → 2021-05-22 | Outpatient (CLI) | payer MEDICARE, OTHER ==
--- NOTE | 2021-05-22 12:47 | P.PAINPG ---
Subjective Progress Note Date: 05/22/21 Principal diagnosis: Lumbar back pain Mrs. Chan is a 89 -year-old pleasant female came to the [facility] pain clinic for postprocedure evaluation . Patient has ongoing pain for many years. Patient had a history of bilateral lumbar L4-L5 and L5-S1 radiofrequency ablation on 04/28/2021 . Patient had more than 60% pain relief still helping her. Patient describes pain is aching, throbbing, constant type of pain. Pain is radiating to left lower extremity sometimes. Patient rated pain levels are 5 out of 10 in severity. With the help of medications pain levels are 4-5 out of 10 in severity. Activities making pain worse. Medications, resting, interventional procedures helping in relieving patient's pain. Patient pain some days better than others. She is still taking tramadol 1-2 tablets as needed. Overall activities decreased secondary to pain. Because of the pain sometimes patient is feeling lack of sleep, interest, and energy. Denied any side effects with the medications. Denied any bowel or bladder problems at this time. Patient denies any suicidal or homicidal ideations intent or plan. Patient denies any auditory or visual hallucinations. Patient denied any red flag symptoms related to pain. Objective - Exam General: Well-developed, well-nourished, no acute distress HEENT: Normocephalic, and atraumatic Neck: Supple, no neck swelling Psychiatric: Appropriate mood, and affect BASEBALL HAND SEWER: No focal neurological deficits Musculoskeletal: Upper extremity: Normal strength, and range of motion. Sensation grossly intact Lower extremity: Normal strength, and decreased range of motion secondary to pain Lumbar spine: Paravertebral tenderness: positive Lumbar facet load test : positive Multiple trigger points positive lower lumbar area Sacroiliac joint tenderness: positive on left side Thigh thrust test: positive on that side SI joint compression test: Positive on left side Fabere test: Positive on left side - Constitutional Constitutional Comment(s): 13 point review of symptoms negative except as mentioned in history of present illness Assessment and Plan Assessment: Lumbar spondylosis without myelopathy Myofascial pain syndrome Sacroiliac joint dysfunction more worse on the left side Plan: #1 Diagnoses, prognosis, and multiple treatment options including but not limited to physical therapy, interventional therapy, adjunct medication therapy, narcotic medication, and surgical options were discussed with the patient. And all questions were answered to the patient's satisfaction. #2 treatment plan agreement : Patient was thoroughly discussed regarding the treatment options, alternatives, and importance of exercises as tolerated. Patient clearly understood. #3 Patient was counseled on importance of regular exercise. Including dahlia chi, aerobic exercises as tolerated. Which helps for chronic pain, and overall well- being. #4 investigations: MAPS- reviewed , urine drug test-not done #5 diagnostic tests: None #6 consultation : None # 7 interventional procedures: None at this time #8 medications None from the pain clinic #9 morphine milligrams equivalents dose ( MME) per day: 10 from orthopedic physician # 10 TENS unit's, and percussion massage device #11 disposition: scheduled to follow up with pain clinic in 20 weeks duration. Time with Patient: Less than 30 PQRS Measure Charge Sheet Measure #130: Documentation of Current Meds in Medical Chart: Patient's medica tions documented in chart Measure #226: Tobacco Use: Screen & Cessation Intervention: Pt not a tobacco user Measure #111: Pneumonia Vaccination: Pneumococcal vaccine administered or previously received Measure #47: Advance Care Plan: Advance care planning discussed & documented, plan or surrogate given Measure #412: Opioid Treatment Agreement: No documentation of signed opioid treatment agreement Measure #408: Opioid Therapy Follow-up Evaluation: Patient had NO f/u eval minimum every 3 months during opioid therapy Measure #317: Preventitive Care & Scrn High Bld Press & F/U: Pre-hypertensive or hypertensive BP documented, pt will f/u with PCP Measure #128: Body Mass Index (BMI) Screening & Follow-up: BMI documented within normal parameters Measure #131: Pain Assessment & Follow-up: Pain positive & plan documented Measure #431: Unhealthy Alcohol Use Preventative Care & Scrn: Patient not identified as an unhealthy alcohol user PQRS Narrative: Smoking Status Former smoker Pain Intensity [Lower Back] 3 Hx Alcohol Use (MH) Yes Home Medications: Ambulatory Orders Atorvastatin [Lipitor] 80 mg PO DAILY 12/30/13 Ezetimibe [Zetia] 10 mg PO DAILY 12/30/13 Atenolol [Tenormin] 25 mg PO DAILY 09/16/14 Losartan Potassium [Cozaar] 50 mg PO DAILY 06/06/15 traMADol HCl [Ultram] 50 mg PO BID 10/14/16 Fluticasone Nasal Morrison [Flonase Nasal Morrison] 1 spray EA NOSTRIL DAILY 04/27/21 Pantoprazole [Protonix] 40 mg PO DAILY 04/27/21 Colchicine [Colcrys] 0.6 mg PO DAILY PRN 05/17/21 Controlled Substance Measures - Controlled Substance Measures Is patient prescribed a controlled substance at discharge?: No
[2021-05-22 12:50] VITALS: BP 135/63; PULSE 58; RESP 18; TEMP 97.5
== END | disposition home or self-care (01) ==
LOC: PNWHC3 12:20
DX: M47.816 Spondylosis without myelopathy or radiculopathy, lumbar region (principal); M79.18 Myalgia, other site; M53.3 Sacrococcygeal disorders, not elsewhere classified
CPT/HCPCS: 99211

== ENCOUNTER 2021-10-22 17:18 | Emergency (ER) | payer MEDICARE, OTHER ==
[2021-10-22 18:21] VITALS: BP 157/67; TEMP 98.2
--- NOTE | 2021-10-22 20:22 | ED ---
General Adult HPI - General Chief complaint: Back Pain/Injury Stated complaint: Upper Back Pain Time Seen by Provider: 10/22/21 20:16 Source: patient Mode of arrival: wheelchair Limitations: no limitations - History of Present Illness Initial comments: Patient presents to the ED with her friend for evaluation. Patient states that she developed tightness in her upper back while at rest about 8 hours ago. Patient states that she then developed tightness in her upper abdomen bilaterally. Patient states that her symptoms have since improved, but are s till present. Patient admits to having a mild cough as well. Patient states that she is fully vaccinated against Covid. Patient states that she has a history of a cardiac history, and she states that she has one stent in place. Patient denies trauma or injury, fever or chills, headache, focal nu mbness/weakness/neuro deficit, chest pain or pressure, neck/arm/jaw pain, pleuritic pain, hemoptysis, dyspnea, palpitations, dizziness, nausea/vomiting/diaphoresis, diarrhea or constipation, bloody or melanotic stool, dysuria or urinary symptoms, leg or calf swelling or pain, or any other symptoms or complaints. - Related Data Home Medications Medication Instructions Recorded Confirmed Atorvastatin [Lipitor] 80 mg PO HS 12/30/13 10/22/21 Ezetimibe [Zetia] 10 mg PO HS 12/30/13 10/22/21 Atenolol [Tenormin] 25 mg PO DAILY 09/16/14 10/22/21 Losartan Potassium [Cozaar] 50 mg PO DAILY 06/06/15 10/22/21 traMADol HCl [Ultram] 50 mg PO BID 10/14/16 10/22/21 Pantoprazole [Protonix] 40 mg PO DAILY 04/27/21 10/22/21 Calcium Carbonate [Calcium] 600 mg PO DAILY 10/22/21 10/22/21 Multivit-Min/FA/Lycopen/Lutein 1 tab PO DAILY 10/22/21 10/22/21 [Centrum Silver Tablet] Allergies Allergy/AdvReac Type Severity Reaction Status Date / Time cat dander Allergy Dyspnea Verified 10/22/21 21:34 dog dander Allergy Dyspnea Verified 10/22/21 21:34 tree and shrub pollen Allergy Dyspnea Verified 10/22/21 21:34 weed pollen Allergy Dyspnea Verified 05/15/22 21:34 mushroom AdvReac GOUT FLARE Verified 10/22/21 21:34 UP shellfish derived [Shellfish] AdvReac GOUT FLARE Verified 10/22/21 21:34 UP Review of Systems ROS Statement: Those systems with pertinent positive or pertinent negative responses have been documented in the HPI. ROS Other: All systems not noted in ROS Statement are negative. Past Medical History Past Medical History: Coronary Artery Disease (CAD), Cancer, Eye Disorder, GERD/Reflux, GI Bleed, Hearing Disorder / Deafness, Hyperlipidemia, Hypertension, Osteoarthritis (OA) Additional Past Medical History / Comment(s): skin cancer. Hearing aid use. Hx Anemia, received 5 units of blood 10/28. chronic low back pain, heart murmur, bilateral mild macular degeneration, scarlet fever as a child, gout History of Any Multi-Drug Resistant Organisms: None Reported Past Surgical History: Appendectomy, Heart Catheterization, Heart Catheterization With Stent, Joint Replacement, Orthopedic Surgery Additional Past Surgical History / Comment(s): back injections, bilateral eric ract removal with lens implants, bilateral knee replacement, carpal tunnel surgery, sebacious cyst removed from back. Past Anesthesia/Blood Transfusion Reactions: No Reported Reaction Additional Past Anesthesia/Blood Transfusion Reaction / Comment(s): . Date of Last Stent Placement:: 2008 Past Psychological History: No Psychological Hx Reported Smoking Status: Former smoker Past Alcohol Use History: Occasional Past Drug Use History: None Reported - Past Family History Father Family Medical History: Myocardial Infarction ([place]) Additional Family Medical History / Comment(s): . Brother(s) Family Medical History: Cancer Additional Family Medical History / Comment(s): Multiple Myeloma. General Exam Limitations: no limitations General appearance: alert, in no apparent distress Head exam: Present: atraumatic, normocephalic Eye exam: Present: normal appearance, EOMI ENT exam: Present: mucous membranes moist Neck exam: Present: other (Trachea is in midline) Respiratory exam: Present: normal lung sounds bilaterally. Absent: respiratory distress, wheezes, rales, rhonchi, stridor, chest wall tenderness Cardiovascular Exam: Present: regular rate, normal rhythm, normal heart sounds, other (Normal radial pulses bilaterally) GI/Abdominal exam: Present: soft, normal bowel sounds. Absent: distended, tenderness, guarding Extremities exam: Present: other (Negative Homans sign bilaterally). Absent: tenderness, pedal edema, calf tenderness Back exam: Present: normal inspection. Absent: tenderness, CVA tenderness (R), CVA tenderness (L) Neurological exam: Present: alert, oriented X3. Absent: motor sensory deficit Psychiatric exam: Present: normal affect, normal mood Skin exam: Present: warm, dry, intact, normal color Course Vital Signs 10/22/21 18:18 Temperature 98.2 F Pulse Rate 63 Respiratory 18 Rate Blood Pressure 157/67 O2 Sat by Pulse 96 Oximetry - Reevaluation(s) Reevaluation #1: 10/23/21 02:16 Patient states that her symptoms have now improved, and she has developed of any new symptoms while in the ED. Patient remains alert and breathing comfortably. Patient's abdomen remains soft and nontender on examination. Patient and friend are aware the patient's test results, and patient feels comfortable being discharged home at this time. Patient was counseled about abdominal pain and back pain. Patient was clearly explained return and follow-up instructions, and she was instructed to have a low threshold for return to the emergency department should her symptoms worsen. Patient was also instructed to follow up closely with her primary care provider. Patient feels comfortable with this plan. EKG Findings - EKG Comments: EKG Findings:: Sinus rhythm with first-degree AV block, no ectopy, ventricular rate of 63 bpm, [place] interval of 232 ms, normal QRS duration, normal QT interval, normal axis, no ST or T-wave abnormality Medical Decision Making - Medical Decision Making Patient is afebrile and without leukocytosis. Patient's LFTs are minimally elevated, and her gallbladder ultrasound demonstrates possible small gallstones; however, I do not think that biliary colic explains the patient's pain very well (diffuse upper abdominal and upper back pain). Patient reports that her pain began about 8 hours prior to ED arrival, and she has a negative troponin. Patient denies having any chest pain or pressure, and she also denies having any dyspnea. I do not suspect an emergent medical condition at this time. Will discharge patient home with her friend at this time. Patient feels comfortable with this plan. - Lab Data Result diagrams: 10/22/21 22:03 10/22/21 22:03 Lab Results 10/22/21 10/22/21 10/22/21 Range/Units 22:03 22:03 22:03 WBC 7.7 (3.8-10.6) k/uL RBC 3.65 L (3.80-5.40) m/uL Hgb 12.1 (11.4-16.0) gm/dL Hct 37.5 (34.0-46.0) % MCV 102.7 H (80.0-100.0) fL MCH 33.3 (25.0-35.0) pg MCHC 32.4 (31.0-37.0) g/dL RDW 15.7 H (11.5-15.5) % Plt Count 207 (150-450) k/uL MPV 7.8 Neutrophils % (Manual) 49 % Band Neuts % (Manual) 2 % Lymphocytes % (Manual) 39 % Monocytes % (Manual) 4 % Eosinophils % (Manual) 5 % Basophils % (Manual) 1 % Neutrophils # (Manual) 3.90 (1.3-7.7) k/uL Lymphocytes # (Manual) 3.00 (1.0-4.8) k/uL Monocytes # (Manual) 0.31 (0-1.0) k/uL Eosinophils # (Manual) 0.39 (0-0.7) k/uL Basophils # (Manual) 0.08 (0-0.2) k/uL Nucleated RBCs 0 (0-0) /100 WBC Manual Slide Review Performed Reactive Lymphocytes Present Macrocytosis Slight PT (9.0-12.0) sec INR (<1.2) APTT (22.0-30.0) sec D-Dimer (<0.60) mg/L FEU Sodium 137 (137-145) mmol/L Potassium 4.5 (3.5-5.1) mmol/L Chloride 102 (98-107) mmol/L Carbon Dioxide 31 H (22-30) mmol/L Anion Gap 4 mmol/L BUN 23 H (7-17) mg/dL Creatinine 1.13 H (0.52-1.04) mg/dL Est GFR (CKD-EPI)AfAm 50 (>60 ml/min/1.73 sqM) Est GFR (CKD-EPI)NonAf 43 (>60 ml/min/1.73 sqM) Glucose 100 H (74-99) mg/dL Calcium 10.5 H (8.4-10.2) mg/dL Magnesium 1.8 (1.6-2.3) mg/dL Total Bilirubin 0.9 (0.2-1.3) mg/dL AST 82 H (14-36) U/L ALT 68 H (4-34) U/L Alkaline Phosphatase 135 H (38-126) U/L Troponin I <0.012 (0.000-0.034) ng/mL NT-Pro-B Natriuret Pep pg/mL Total Protein 6.5 (6.3-8.2) g/dL Albumin 3.6 (3.5-5.0) g/dL Lipase 78 (23-300) U/L Coronavirus (PCR) (Not Detectd) Influenza Type A RNA (Not Detectd) Influenza Type B (PCR) (Not Detectd) 10/22/21 10/22/21 10/22/21 Range/Units 22:03 22:03 22:03 WBC (3.8-10.6) k/uL RBC (3.80-5.40) m/uL Hgb (11.4-16.0) gm/dL Hct (34.0-46.0) % MCV (80.0-100.0) fL MCH (25.0-35.0) pg MCHC (31.0-37.0) g/dL RDW (11.5-15.5) % Plt Count (150-450) k/uL MPV Neutrophils % (Manual) % Band Neuts % (Manual) % Lymphocytes % (Manual) % Monocytes % (Manual) % Eosinophils % (Manual) % Basophils % (Manual) % Neutrophils # (Manual) (1.3-7.7) k/uL Lymphocytes # (Manual) (1.0-4.8) k/uL Monocytes # (Manual) (0-1.0) k/uL Eosinophils # (Manual) (0-0.7) k/uL Basophils # (Manual) (0-0.2) k/uL Nucleated RBCs (0-0) /100 WBC Manual Slide Review Reactive Lymphocytes Macrocytosis PT (9.0-12.0) sec INR (<1.2) APTT (22.0-30.0) sec D-Dimer (<0.60) mg/L FEU Sodium (137-145) mmol/L Potassium (3.5-5.1) mmol/L Chloride (98-107) mmol/L Carbon Dioxide (22-30) mmol/L Anion Gap mmol/L BUN (7-17) mg/dL Creatinine (0.52-1.04) mg/dL Est GFR (CKD-EPI)AfAm (>60 ml/min/1.73 sqM) Est GFR (CKD-EPI)NonAf (>60 ml/min/1.73 sqM) Glucose (74-99) mg/dL Calcium (8.4-10.2) mg/dL Magnesium (1.6-2.3) mg/dL Total Bilirubin (0.2-1.3) mg/dL AST (14-36) U/L ALT (4-34) U/L Alkaline Phosphatase (38-126) U/L Troponin I (0.000-0.034) ng/mL NT-Pro-B Natriuret Pep 218 pg/mL Total Protein (6.3-8.2) g/dL Albumin (3.5-5.0) g/dL Lipase (23-300) U/L Coronavirus (PCR) Not Detected (Not Detectd) Influenza Type A RNA Not Detected (Not Detectd) Influenza Type B (PCR) Not Detected (Not Detectd) 10/22/21 Range/Units 23:53 WBC (3.8-10.6) k/uL RBC (3.80-5.40) m/uL Hgb (11.4-16.0) gm/dL Hct (34.0-46.0) % MCV (80.0-100.0) fL MCH (25.0-35.0) pg MCHC (31.0-37.0) g/dL RDW (11.5-15.5) % Plt Count (150-450) k/uL MPV Neutrophils % (Manual) % Band Neuts % (Manual) % Lymphocytes % (Manual) % Monocytes % (Manual) % Eosinophils % (Manual) % Basophils % (Manual) % Neutrophils # (Manual) (1.3-7.7) k/uL Lymphocytes # (Manual) (1.0-4.8) k/uL Monocytes # (Manual) (0-1.0) k/uL Eosinophils # (Manual) (0-0.7) k/uL Basophils # (Manual) (0-0.2) k/uL Nucleated RBCs (0-0) /100 WBC Manual Slide Review Reactive Lymphocytes Macrocytosis PT 9.7 (9.0-12.0) sec INR 0.9 (<1.2) APTT 20.2 L (22.0-30.0) sec D-Dimer 2.57 H (<0.60) mg/L FEU Sodium (137-145) mmol/L Potassium (3.5-5.1) mmol/L Chloride (98-107) mmol/L Carbon Dioxide (22-30) mmol/L Anion Gap mmol/L BUN (7-17) mg/dL Creatinine (0.52-1.04) mg/dL Est GFR (CKD-EPI)AfAm (>60 ml/min/1.73 sqM) Est GFR (CKD-EPI)NonAf (>60 ml/min/1.73 sqM) Glucose (74-99) mg/dL Calcium (8.4-10.2) mg/dL Magnesium (1.6-2.3) mg/dL Total Bilirubin (0.2-1.3) mg/dL AST (14-36) U/L ALT (4-34) U/L Alkaline Phosphatase (38-126) U/L Troponin I (0.000-0.034) ng/mL NT-Pro-B Natriuret Pep pg/mL Total Protein (6.3-8.2) g/dL Albumin (3.5-5.0) g/dL Lipase (23-300) U/L Coronavirus (PCR) (Not Detectd) Influenza Type A RNA (Not Detectd) Influenza Type B (PCR) (Not Detectd) - Radiology Data Chest x-ray: No active cardiopulmonary disease. Normal heart. No adverse change. Gallbladder ultrasound: There is simple hepatic cyst. No dilated ducts. There is probably small gallstones. No significant gallbladder wall thickening. No free fluid. There is right renal cortical atrophy. CT angiography chest with IV contrast: Cardiomegaly. No evidence of pulmonary embolism. No suspicious pulmonary mass. Disposition Clinical Impression: Abdominal pain, Upper back pain Disposition: HOME SELF-CARE Condition: Stable Instructions (If sedation given, give patient instructions): Abdominal Pain (ED), Back Pain (ED) Additional Instructions: Return to the ER immediately should you develop new or worsening pain, chest pain, shortness of breath, a fever, vomiting, feeling dizzy or faint, or new or worsening symptoms. Follow up closely with your primary care provider. Is patient prescribed a controlled substance at d/c from ED?: No Referrals: Shawn Calvert MD [Primary Care Provider] - 1-2 days Time of Disposition: 02:22
--- NOTE | 2021-10-22 21:09 | XR ---
EXAMINATION TYPE: XR chest 1V portable DATE OF EXAM: 10/22/2021 COMPARISON: 02/22/2019 HISTORY: Chest pain TECHNIQUE: Single view FINDINGS: Heart is normal. Lungs are clear of consolidation. There are no hilar masses. Costophrenic angles are clear. There is some arthritic change at both shoulder joints. IMPRESSION: No active cardiopulmonary disease. Normal heart. No adverse change.
[2021-10-22 22:28] LABS: Albumin 3.6 g/dL (3.5-5.0); Calcium 10.5 mg/dL (8.4-10.2); Magnesium 1.8 mg/dL (1.6-2.3); Potassium 4.5 mmol/L (3.5-5.1); Total Bilirubin 0.9 mg/dL (0.2-1.3); Total Protein 6.5 g/dL (6.3-8.2)
[2021-10-22 22:42] LABS: HCT 37.5 % (34.0-46.0); HGB 12.1 gm/dL (11.4-16.0); MCH 33.3 pg (25.0-35.0); MCHC 32.4 g/dL (31.0-37.0); MCV 102.7 fL (80.0-100.0); Macrocytosis Slight; Mean Platelet Volume 7.8; Platelet Count 207 k/uL (150-450); RBC 3.65 m/uL (3.80-5.40); RDW 15.7 % (11.5-15.5); WBC 7.7 k/uL (3.8-10.6)
[2021-10-22 23:15] LABS: Band Neutrophils % 2 %; Basophils # (M) 0.08 k/uL (0-0.2); Eosinophils # (M) 0.39 k/uL (0-0.7); Monocytes # (M) 0.31 k/uL (0-1.0); Neutrophils % (M) 49 %; Nucleated Red Blood Cells 0 /100 WBC (0-0); Total Cells Counted 100
[2021-10-22 23:16] LABS: Reactive Lymphocytes Present
[2021-10-23 00:27] LABS: INR 0.9 (<1.2); Prothrombin Time 9.7 sec (9.0-12.0)
[2021-10-23 00:30] LABS: Partial Thromboplastin Time 20.2 sec (22.0-30.0)
[2021-10-23] MEDS ORDERED: SODIUM CHLORIDE 0.9% 1,000 ML IV ONE (00:34)
--- NOTE | 2021-10-23 00:48 | US ---
EXAMINATION TYPE: US gallbladder DATE OF EXAM: 10/23/2021 COMPARISON: NONE CLINICAL HISTORY: Upper Abdominal pain, elevated LFTs. ruq pain exam limited due to body habitus. EXAM MEASUREMENTS: Liver Length: 11.7 cm Gallbladder Wall: .4 cm CBD: .6 cm Right Kidney: 9.7 x 4.4 x 4.1 cm Pancreas: Tail obscured by overlying bowel gas duct visualized 3 mm. Liver: increased attenuation cystic area seen left pole 2.4 x 2.7 x 2.4 cm. Gallbladder: low level echoes visualized Evidence for sonographic Morelos's sign: no CBD: wnl Right Kidney: hypoechoic area .9 x .9 x 1.0 cm. IMPRESSION: There is simple hepatic cyst. No dilated ducts. There is probably small gallstones. No significant ga llbladder wall thickening. No free fluid. There is right renal cortical atrophy.
--- NOTE | 2021-10-23 01:57 | CT ---
EXAMINATION TYPE: CT chest angio for PE DATE OF EXAM: 10/23/2021 COMPARISON: None HISTORY: pe CT DLP: 370.2 mGycm Automated exposure control for dose reduction was used. CONTRAST: Performed with IV Contrast, patient injected with 60 mL of Isovue 370. Images obtained from the thoracic inlet to the diaphragm without IV contrast. There are 3-D post proc essed images. The lungs are clear of consolidation. No evidence of a pulmonary mass. Heart is enlarged. No pericard ial effusion. No pleural effusion. There is 3 cm rounded fluid density in the anterior liver that is probably a cyst. There are no hilar masses. No mediastinal adenopathy. Thoracic aorta is intact. No aneurysm. No evide nce of filling defect in the pulmonary arteries. There is some spurring in the thoracic spine. Sternu m is intact. IMPRESSION: Cardiomegaly. No evidence of pulmonary embolism. No suspicious pulmonary mass.
[2021-10-23 03:02] VITALS: PULSE 62; RESP 16
== END 2021-10-23 03:02 | disposition home or self-care (01) ==
LOC: EC 17:18
DX: R10.9 Unspecified abdominal pain (principal); M54.6 Pain in thoracic spine; I10 Essential (primary) hypertension; E78.5 Hyperlipidemia, unspecified; K21.9 Gastro-esophageal reflux disease without esophagitis; Z79.83 Long term (current) use of bisphosphonates; Z87.891 Personal history of nicotine dependence; Z82.49 Family history of ischemic heart disease and other diseases of the circulatory system; Z91.09 Other allergy status, other than to drugs and biological substances; Z91.018 Allergy to other foods; Z91.013 Allergy to seafood
CPT/HCPCS: 99284 ×2; 96360 ×2; 36415; 93005; 85379; 83880; 80053; 83690; 83735; 84484; 85025; 85610; 85730; 87502; 87635; 71045; 76705; 71275; Q9967

== ENCOUNTER 2022-04-04 12:01 | Emergency (ER) | payer MEDICARE, OTHER ==
[2022-04-04 12:07] VITALS: RESP 18; TEMP 98.3
[2022-04-04] MEDS ORDERED: LIDOCAINE 5% PATCH TOPICAL STA (12:22)
[2022-04-04] MEDS ORDERED: methocarbamoL 500 MG TAB PO STA (12:22)
[2022-04-04] MEDS ORDERED: KETOROLAC 15 MG/ML 1 ML VIAL IM STA (12:22)
--- NOTE | 2022-04-04 13:07 | XR ---
EXAMINATION TYPE: XR lumbar spine 2 or 3V DATE OF EXAM: 04/04/2022 CLINICAL HISTORY: Acute on chronic back pain. TECHNIQUE: Frontal and lateral images of the lumbar spine are obtained. COMPARISON: MRI lumbar spine January 21, 2021 FINDINGS: There are 6 lumbar type vertebral bodies identified. 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 Redemonstration of gra de 1 retrolisthesis L3 on L4 with moderate to severe disc space narrowing and vacuum disc phenomenon. Moderate multilevel anterior and lateral spurring redemonstrated. Vertebral body heights are maintai ld. Moderate overlying arterial vascular calcification is seen. No acute displaced fracture. IMPRESSION: As above. No significant change from most recent MRI.
--- NOTE | 2022-04-04 13:39 | ED ---
General Adult HPI - General Chief complaint: Back Pain/Injury Stated complaint: BACK PAIN Time Seen by Provider: 04/04/22 12:09 Source: patient, EMS, RN notes reviewed, old records reviewed Mode of arrival: EMS Limitations: no limitations - History of Present Illness Initial comments: Patient is an 89-year-old female who presents emergency Department complaining of acute on chronic back pain. States it feels like her sciatica pain. Has been worse over the last few days. No known provocative factor. Did receive radiotherapy last week with her orthopedic physician, but had no complications. Is on Ultram at home for pain. Discussed the pain as achy, sharp that radiates down the posterior aspect of her left buttock. Denies any urinary or bowel retention, incontinence. Denies any saddle anesthesias. Denies any numbness. He relates with a walker at baseline. Denies any falls. No other acute complaints at this time. Presents for further evaluation of her concern for her back pain. - Related Data Home Medications Medication Instructions Recorded Confirmed Atorvastatin [Lipitor] 80 mg PO HS 12/30/13 10/22/21 Ezetimibe [Zetia] 10 mg PO HS 12/30/13 10/22/21 Atenolol [Tenormin] 25 mg PO DAILY 09/16/14 10/22/21 Losartan Potassium [Cozaar] 50 mg PO DAILY 06/06/15 10/22/21 traMADol HCl [Ultram] 50 mg PO BID 10/14/16 10/22/21 Pantoprazole [Protonix] 40 mg PO DAILY 04/27/21 10/22/21 Calcium Carbonate [Calcium] 600 mg PO DAILY 10/22/21 10/22/21 Multivit-Min/FA/Lycopen/Lutein 1 tab PO DAILY 10/22/21 10/22/21 [Centrum Silver Tablet] Previous Rx's Medication Instructions Recorded Lidocaine 5% Patch [Lidoderm 5% 1 patch TOPICAL DAILY PRN 7 Days 04/04/22 Patch] #7 patch methocarbamoL [Robaxin-750] 750 mg PO BID PRN 7 Days #14 tab 04/04/22 Allergies Allergy/AdvReac Type Severity Reaction Status Date / Time cat dander Allergy Dyspnea Verified 04/04/22 12:07 dog dander Allergy Dyspnea Verified 04/04/22 12:07 tree and shrub pollen Allergy Dyspnea Verified 04/04/22 12:07 weed pollen Allergy Dyspnea Verified 04/04/22 12:07 mushroom AdvReac GOUT FLARE Verified 04/04/22 12:07 UP shellfish derived [Shellfish] AdvReac GOUT FLARE Verified 04/04/22 12:07 UP Review of Systems ROS Statement: Those systems with pertinent positive or pertinent negative responses have been documented in the HPI. Review of Systems: CONST: Denies fever EYES: Denies blurry vision ENT: Denies nasal congestion C/V: Denies Chest pain RESP: Denies shortness of breath GI: Denies abdominal pain : Denies dysuria SKIN: Denies rash. MSK: Endorses back pain NEURO: Denies headache ROS Other: All systems not noted in ROS Statement are negative. Past Medical History Past Medical History: Coronary Artery Disease (CAD), Cancer, Eye Disorder, GERD/Reflux, GI Bleed, Hearing Disorder / Deafness, Hyperlipidemia, Hypertension, Osteoarthritis (OA) Additional Past Medical History / Comment(s): skin cancer. Hearing aid use. Hx Anemia, received 5 units of blood 10/28. chronic low back pain, heart murmur, bilateral mild macular degeneration, scarlet fever as a child, gout History of Any Multi-Drug Resistant Organisms: None Reported Past Surgical History: Appendectomy, Heart Catheterization, Heart Cathete rization With Stent, Joint Replacement, Orthopedic Surgery Additional Past Surgical History / Comment(s): back injections, bilateral cataract removal with lens implants, bilateral knee replacement, carpal tunnel surgery, sebacious cyst removed from back. Past Anesthesia/Blood Transfusion Reactions: No Reported Reaction Additional Past Anesthesia/Blood Transfusion Reaction / Comment(s): . Date of Last Stent Placement:: 2008 Past Psychological History: No Psychological Hx Reported Smoking Status: Former smoker Past Alcohol Use History: Occasional Past Drug Use History: None Reported - Past Family History Father Family Medical History: Myocardial Infarction ([place]) Additional Family Medical History / Comment(s): . Brother(s) Family Medical History: Cancer Additional Family Medical History / Comment(s): Multiple Myeloma. General Exam - General Exam Comments Initial Comments: General: Appears in no acute distress. HEAD: Normal with no signs of head trauma. EYES: EOMI ENT: Hearing grossly intact, normal oropharynx. RESPIRATORY: No breath sound bilaterally. C/V: Regular rate and rhythm. S1 and S2 auscultated, no edema, peripheral pulses 2+ and intact throughout ABD: Abd is soft, nontender, nondistended EXT: Normal range of motion, no obvious deformity. Left-sided paraspinal muscle tenderness to palpation in the lower lumbar spine. No madiha midline spine tenderness palpation lumbar spine. No spinal tenderness to palpation of the cervical or thoracic spines. SKIN: No rashes or lesions observed on exposed skin. NEURO: Alert and oriented 4. No focal sensory strength deficits. Ambulates with orthopedics. Limitations: no limitations Course Vital Signs 04/04/22 04/04/22 12:02 13:48 Temperature 98.3 F Pulse Rate 70 80 Respiratory 18 18 Rate Blood Pressure 159/74 136/78 O2 Sat by Pulse 95 100 Oximetry Medical Decision Making - Medical Decision Making Based on the patient's presentation and physical exam, I'm concerned for acute on chronic back pain. Is having sciatica type pain. This is somewhat typical for her, however this is worse than normal. Denies any known trauma. Presents for further evaluation of this time. Has no red flag symptoms concerning for cauda equina syndrome. I discussed we will obtain imaging of the lumbar spine and symptomatically treat the patient with analgesic medications. She was in agreement with this plan. Vital signs within acceptable limits. Lumbar spine imaging showed no acute changes. Chronic changes are redemonstrated. After the patient. She is feeling improved. She will follow- up with her orthopedic physician on Saturday. Strict return precautions were discussed. We reviewed her imaging. I will provide the patient with a prescription for Robaxin, lidocaine patches. I instructed the patient to follow up with their PCP in the next 1-3 days. I explained that the patient should return to the emergency department if they experience any worsening symptoms. Strict return precautions were discussed with the patient. The patient expressed understanding of these instructions. I answered all questions that the patient had. The patient was discharged home in good condition with their prescriptions and follow up information. Disposition Clinical Impression: Chronic back pain Disposition: HOME SELF-CARE Condition: Good Instructions (If sedation given, give patient instructions): Low Back Strain (ED) Prescriptions: Lidocaine 5% Patch [Lidoderm 5% Patch] 1 patch TOPICAL DAILY PRN 7 Days #7 patch PRN Reason: Pain methocarbamoL [Robaxin-750] 750 mg PO BID PRN 7 Days #14 tab PRN Reason: Pain Is patient prescribed a controlled substance at d/c from ED?: No Referrals: None,Stated [Primary Care Provider] - 1-2 days Time of Disposition: 13:25
[2022-04-04 13:49] VITALS: BP 136/78; PULSE 80
== END 2022-04-04 13:49 | disposition home or self-care (01) ==
LOC: EC 12:01
DX: M54.9 Dorsalgia, unspecified (principal); E78.5 Hyperlipidemia, unspecified; I10 Essential (primary) hypertension; M19.90 Unspecified osteoarthritis, unspecified site; Z87.891 Personal history of nicotine dependence; Z91.048 Other nonmedicinal substance allergy status; Z91.09 Other allergy status, other than to drugs and biological substances; Z91.013 Allergy to seafood
CPT/HCPCS: 72100; 99283; 96372; J1885

== ENCOUNTER → 2022-06-29 | Outpatient (CLI) | payer MEDICARE, OTHER ==
--- NOTE | 2022-06-29 11:33 | XR ---
EXAMINATION TYPE: XR chest 2V DATE OF EXAM: 06/29/2022 10:59 AM COMPARISON: Chest radiographs from 10/22/2021. TECHNIQUE: XR chest 2V Frontal and lateral views of the chest. CLINICAL INDICATION:Female, 89 years old with history of T18.0XXA Foreign body (swallowed crown); FINDINGS: Lungs/Pleura: There is no evidence of pleural effusion, focal consolidation, or pneumothorax. Chroni c senescent parenchymal changes. Pulmonary vascularity: Unremarkable. Heart/mediastinum: Cardiomediastinal silhouette is enlarged and stable. Atherosclerotic calcificatio ns are seen in the aorta. Musculoskeletal: Multiple level degenerative disc disease changes seen throughout the spine. No acute osseous abnormality. Other findings: No definitive radiopaque foreign body identified. IMPRESSION: 1. No acute cardiopulmonary disease/process. 2. No definitive radiopaque foreign body identified. 3. Persistent cardiomegaly.
== END | disposition home or self-care (01) ==
LOC: RADXRMAIN 10:39
DX: I51.7 Cardiomegaly (principal); T18.0XXA Foreign body in mouth, initial encounter
CPT/HCPCS: 71046